=== PATIENT | male | born 1985 | race Caucasian/White ===

== ENCOUNTER 2021-06-04 09:47 | Outpatient (CLI) | payer BC, SELFPAY ==
[2021-06-04 10:48] LABS: Basophils Absolute Auto 0.1 K/mm3 (0.0-0.1); Basophils Percent Auto 1.1 % (0.2-1.2); Eosinophils Absolute Auto 0.3 K/mm3 (0-0.3); Hematocrit 48.9 % (42.0-52.0); Immature Granulocyte Absolute 0.02 K/mm3 (0.00-0.031); Immature Granulocyte Percent A 0.4 % (0-0.5); Lymphocytes Absolute Auto 1.47 K/mm3 (0.9-3.2); Lymphocytes Percent Auto 27.3 % (18.3-44.2); Mean Corpuscular HGB Conc 32.7 g/dl (32-36); Mean Corpuscular Hemoglobin 29.9 pg (26-34); Mean Corpuscular Volume 91.4 fl (80-100); Mean Platelet Volume 9.8 fl (7.4-10.4); Monocytes Absolute Auto 0.5 K/mm3 (0.1-0.6); Monocytes Percent Auto 8.7 % (2.6-8.5); Neutrophils Absolute Auto 3.1 K/mm3 (1.3-6.7); Neutrophils Percent Auto 57.5 % (45.5-73.1); Platelet Count Result 248 k/mm3 (150-375); Red Blood Count 5.35 M/mm3 (4.6-6.20); White Blood Count 5.4 K/mm3 (4.5-10.0)
[2021-06-04 11:09] LABS: Alanine Aminotransferase 23 U/L (4-50); Albumin Level 4.4 g/dL (3.5-5.1); Alkaline Phosphatase 58 U/L (38-126); Anion Gap 7 mmol/L (8-16); Aspartate Amino Transferase 30 U/L (17-59); Bilirubin,Total 0.7 mg/dL (0.2-1.3); Blood Urea Nitrogen 14 mg/dL (9-20); Calcium 9.1 mg/dL (8.4-10.2); Carbon Dioxide 26 mmol/L (22-30); Chloride 105 mmol/L (98-107); Cholesterol 172 mg/dL (0-200); Estimated Glomerular Filt Rate > 60; Glucose 103 mg/dL (65-110); HDL Direct 51 mg/dL; Sodium 138 mmol/L (137-145); Triglycerides 64 mg/dL (<150)
[2021-06-04 11:20] LABS: LDL Cholesterol Direct 88 mg/dL
[2021-06-04 11:23] LABS: Hemoglobin A1C 5.3 % (<5.7)
[2021-06-04 11:54] LABS: Free T4 Free Thyroxine 1.18 ng/mL (0.78-2.19); Vitamin D 25 Hydroxy 46.4 ng/mL
== END 2021-06-04 09:48 | disposition home or self-care (01) ==
LOC: ANHLAB 09:51
PROVIDERS: PCP Internal Medicine; Visit Provider Internal Medicine
DX: Z83.3 Family history of diabetes mellitus (principal); Z13.0 Encounter for screening for diseases of the blood and blood-forming organs and certain disorders involving the immune mechanism; Z13.220 Encounter for screening for lipoid disorders; Z13.1 Encounter for screening for diabetes mellitus; Z00.00 Encounter for general adult medical examination without abnormal findings
CPT/HCPCS: 36415; 80053; 80061; 82306; 83036; 84439; 84443; 85025

== ENCOUNTER 2022-08-12 08:30 | Outpatient (CLI) | payer OTHER, SELFPAY ==
--- NOTE | ~2022-08-12 | US_ITS ---
EXAMINATION: US soft tissue head and neck DATE: 08/12/2022 09:12 INDICATION: Dysphagia, unspecified. TECHNIQUE: Multiple ultrasound images of the thyroid were obtained. COMPARISON: None. FINDINGS: The right thyroid lobe measures 5.2 x 1.4 x 2.0 cm. The left thyroid lobe measures 5.4 x 1.6 x 1.4 c m. In the right thyroid lobe, there is a 4 mm nodule. IMPRESSION: 1. Small thyroid nodule, likely not clinically significant. No follow-up is needed. Reviewed, dictated and finalized at location A. LABORER IMPRESSION: 1. Small thyroid nodule, likely not clinically significant. No follow-up is nee ded.
--- NOTE | ~2022-08-12 | XR_ITS ---
EXAMINATION: XR barium swallow DATE: 08/12/2022 09:24 INDICATION: Dysphagia, unspecified. TECHNIQUE: The patient drank thick barium, gas-producing crystals, and thin barium. Fluoroscopy of th e hypopharynx and esophagus was performed. Fluoroscopy exposure time was 0.3 minutes. The total numbe r of images was 196. The dose-area product was 1.134 Gy-cm^2. COMPARISON: None. FINDINGS: There is no mass or stricture of the esophagus. Esophageal motility is normal. There is no hiatal hernia. There was no gastroesophageal reflux with provocative maneuvers. IMPRESSION: 1. Normal esophagram. Reviewed, dictated and finalized at location A. URER OF [place]UG[place] IMPRESSION: 1. Normal esophagram.
== END 2022-08-12 08:31 | disposition home or self-care (01) ==
PROVIDERS: PCP Internal Medicine; Visit Provider Internal Medicine
DX: R13.10 Dysphagia, unspecified (principal); E04.1 Nontoxic single thyroid nodule
CPT/HCPCS: 74220; 76536

== ENCOUNTER 2023-06-07 16:21 | Outpatient (CLI) | payer OTHER, SELFPAY ==
[2023-06-07 17:54] LABS: Basophils Absolute Auto 0.1 K/mm3 (0.0-0.1); Basophils Percent Auto 0.9 % (0.2-1.2); Eosinophils Absolute Auto 0.3 K/mm3 (0-0.3); Eosinophils Percent Auto 4.4 % (0-4.4); Hematocrit 46.8 % (42.0-52.0); Hemoglobin 15.7 g/dL (14.0-18.0); Immature Granulocyte Absolute 0.03 K/mm3 (0.00-0.031); Immature Granulocyte Percent A 0.4 % (0-0.5); Lymphocytes Absolute Auto 2.21 K/mm3 (0.9-3.2); Lymphocytes Percent Auto 28.3 % (18.3-44.2); Mean Corpuscular HGB Conc 33.5 g/dl (32-36); Mean Corpuscular Hemoglobin 30.1 pg (26-34); Mean Corpuscular Volume 89.8 fl (80-100); Mean Platelet Volume 9.6 fl (7.4-10.4); Monocytes Absolute Auto 0.6 K/mm3 (0.1-0.6); Monocytes Percent Auto 8.2 % (2.6-8.5); Neutrophils Absolute Auto 4.5 K/mm3 (1.3-6.7); Neutrophils Percent Auto 57.8 % (45.5-73.1); Platelet Count Result 274 k/mm3 (150-375); Red Blood Count 5.21 M/mm3 (4.6-6.20); Red Cell Distribution Width 12.5 % (11.5-14.5); White Blood Count 7.8 K/mm3 (4.5-10.0)
[2023-06-07 18:04] LABS: Alanine Aminotransferase 32 U/L (6-50); Albumin Level 4.6 g/dL (3.5-5.1); Alkaline Phosphatase 61 U/L (38-126); Anion Gap 7 mmol/L (8-16); Aspartate Amino Transferase 32 U/L (17-59); Bilirubin,Total 0.5 mg/dL (0.2-1.3); Blood Urea Nitrogen 19 mg/dL (9-20); Carbon Dioxide 28 mmol/L (22-30); Chloride 103 mmol/L (98-107); Cholesterol 192 mg/dL (0-200); Estimated Glomerular Filt Rate > 60; Glucose 88 mg/dL (65-110); HDL Direct 51 mg/dL; Potassium 3.8 mmol/L (3.4-5.0); Sodium 138 mmol/L (137-145); Triglycerides 50 mg/dL (<150)
[2023-06-07 18:14] LABS: Hemoglobin A1C 5.3 % (<5.7)
[2023-06-07 18:15] LABS: LDL Cholesterol Direct 109 mg/dL
[2023-06-07 18:27] LABS: Appearance Urine Clear (Clear); Bilirubin Urine Negative (Negative); Blood Urine Negative (Negative); Color Urine Yellow (Yellow); Glucose Urine UA Negative (Negative); Ketones Urine 1+ mg/dL (Negative); Leukocyte Esterase Ur Negative LEU/UL (NEGATIVE); Nitrate Urine Negative (Negative); Protein Urine Negative (Negative); Specific Grav Ur 1.029 (1.001-1.035); Urobilinogen Urine 0.2 mg/dL (<2.0)
[2023-06-07 18:35] LABS: Add Urine Microscopic? NO
[2023-06-07 18:58] LABS: Free T4 Free Thyroxine 1.31 ng/mL (0.78-2.19)
[2023-06-07 19:40] LABS: Vitamin D 25 Hydroxy 56.8 ng/mL
== END 2023-06-07 16:22 | disposition home or self-care (01) ==
LOC: ANHLAB 16:22
PROVIDERS: PCP Internal Medicine; Visit Provider Internal Medicine
DX: Z00.00 Encounter for general adult medical examination without abnormal findings (principal)
CPT/HCPCS: 36415; 80053; 80061; 81003; 82306; 83036; 84439; 84443; 85025

== ENCOUNTER 2024-07-19 11:16 | Outpatient (CLI) | payer BC, SELFPAY ==
[2024-07-19 11:34] LABS: Basophils Absolute Auto 0.1 K/mm3 (0.0-0.1); Basophils Percent Auto 1.1 % (0.2-1.2); Eosinophils Absolute Auto 0.4 K/mm3 (0-0.3); Hematocrit 47.6 % (42.0-52.0); Hemoglobin 16.3 g/dL (14.0-18.0); Immature Granulocyte Absolute 0.02 K/mm3 (0.00-0.031); Immature Granulocyte Percent A 0.3 % (0-0.5); Lymphocytes Absolute Auto 1.68 K/mm3 (0.9-3.2); Lymphocytes Percent Auto 26.7 % (18.3-44.2); Mean Corpuscular HGB Conc 34.2 g/dl (32-36); Mean Corpuscular Hemoglobin 30.5 pg (26-34); Mean Corpuscular Volume 89.1 fl (80-100); Mean Platelet Volume 9.9 fl (7.4-10.4); Monocytes Absolute Auto 0.6 K/mm3 (0.1-0.6); Monocytes Percent Auto 9.2 % (2.6-8.5); Neutrophils Absolute Auto 3.6 K/mm3 (1.3-6.7); Neutrophils Percent Auto 56.7 % (45.5-73.1); Platelet Count Result 270 k/mm3 (150-375); Red Blood Count 5.34 M/mm3 (4.6-6.20); Red Cell Distribution Width 12.8 % (11.5-14.5); White Blood Count 6.3 K/mm3 (4.5-10.0)
[2024-07-19 11:43] LABS: Hemoglobin A1C 5.5 % (<5.7)
[2024-07-19 11:44] LABS: Alanine Aminotransferase 54 U/L (6-50); Albumin Level 4.6 g/dL (3.5-5.1); Alkaline Phosphatase 60 U/L (38-126); Anion Gap 9 mmol/L (4-12); Aspartate Amino Transferase 37 U/L (17-59); Bilirubin,Total 0.7 mg/dL (0.2-1.3); Blood Urea Nitrogen 20 mg/dL (9-20); Calcium 9.1 mg/dL (8.4-10.2); Carbon Dioxide 31 mmol/L (22-30); Chloride 101 mmol/L (98-107); Cholesterol 190 mg/dL (0-200); Estimated Glomerular Filt Rate > 60; Glucose 96 mg/dL (65-110); HDL Direct 44 mg/dL; Potassium 3.9 mmol/L (3.4-5.0); Sodium 141 mmol/L (137-145); Triglycerides 155 mg/dL (<150)
[2024-07-19 11:55] LABS: LDL Cholesterol Direct 104 mg/dL
[2024-07-19 12:32] LABS: Vitamin D 25 Hydroxy 35.7 ng/mL
== END 2024-07-19 11:17 | disposition home or self-care (01) ==
PROVIDERS: PCP Internal Medicine; Visit Provider Internal Medicine
DX: Z13.220 Encounter for screening for lipoid disorders (principal); Z13.1 Encounter for screening for diabetes mellitus; E55.9 Vitamin D deficiency, unspecified; Z79.899 Other long term (current) drug therapy
CPT/HCPCS: 36415; 80053; 80061; 82306; 83036; 85025

== ENCOUNTER 2024-09-10 07:43 | Outpatient (CLI) | payer BC, SELFPAY ==
--- NOTE | ~2024-09-10 | MR_ITS ---
EXAMINATION: MR ankle RT wo con DATE: 09/10/2024 08:36 INDICATION: Plantar fasciitis TECHNIQUE: Magnetic resonance imaging (MRI) of the right ankle was performed without intravenous cont rast. Sequences included sagittal, coronal, and axial proton-density weighted fast spin echo without and with fat saturation. COMPARISON: None. FINDINGS: Medial ankle ligaments: Deep and superficial deltoid ligaments as well as the spring ligament are normal. Lateral ankle ligaments: The anterior and posterior inferior tibiofibular ligaments are normal. The anterior talofibular, calc aneofibular and posterior talofibular ligaments are normal. Tendons: Small enthesophyte and tiny enthesopathic ossicle at the calcaneal insertion of the otherwise normal Achilles tendon. The peroneus longus and brevis tendons are normal. The tibialis anterior and extenso r hallucis longus and extensor digitorum longus tendons are normal. The tibialis posterior, flexor di gitorum longus and flexor hallucis longus tendons are normal. Plantar fascia: There is mild enthesopathy at the proximal plantar aponeurosis. There is a partial-thickness intrasub stance tear at the calcaneal origin of the central component of the plantar aponeurosis. The tear rosendo sures partially 5 mm medial to lateral with similar approximate 5 mm distal retraction. The tear appe ars to involve <20% of the cross-sectional area of the aponeurosis. Bones/other: Bone alignment is normal. Thin low signal intensity likely sclerotic rim to a 5 mm T2 hyperintense li aryan intraosseous ganglion cyst in the calcaneus underlying the angle of Gissane. There is also a low signal intensity bone island at the talar dome. Marrow signal is otherwise unremarkable. No fracture or other pathologic marrow replacing process. Joint spaces are relatively preserved throughout the a nkle, mid and hindfoot. Fluid: No joint effusions or other abnormal fluid collections. IMPRESSION: 1. Mild plantar enthesopathy with a small partial-thickness intrasubstance tear at the calcaneal orig in of the central component of the plantar aponeurosis. Reviewed, dictated and finalized at location A. OSOFT DYNAMICS DEVELOPER IMPRESSION: 1. Mild plantar enthesopathy with a small partial-thickness intrasubstance tear at the calcaneal origin of the central component of the plantar aponeurosis.
--- NOTE | ~2024-09-10 | MR_ITS ---
EXAMINATION: MR ankle LT wo con DATE: 09/10/2024 08:49 INDICATION: Plantar fasciitis TECHNIQUE: Magnetic resonance imaging (MRI) of the left ankle was performed without intravenous contr ast. Sequences included sagittal, coronal, and axial proton-density weighted fast spin echo without a nd with fat saturation. COMPARISON: None. FINDINGS: Medial ankle ligaments: Deep and superficial deltoid ligaments as well as the spring ligament are normal. Lateral ankle ligaments: The anterior and posterior inferior tibiofibular ligaments are normal. The anterior talofibular, calc aneofibular and posterior talofibular ligaments are normal. Tendons: Small enthesophyte at the calcaneal insertion of the otherwise normal Achilles tendon. The peroneus l ongus and brevis tendons are normal. The tibialis anterior and extensor hallucis longus and extensor digitorum longus tendons are normal. The tibialis posterior, flexor digitorum longus and flexor hallu cis longus tendons are normal. Plantar fascia: Small plantar calcaneal spur at the origin of the normal-appearing plantar aponeurosis with no associ ated marrow or surrounding soft tissue edema to suggest acute plantar fasciitis. Bones/other: Bone alignment is normal. Small low signal intensity bone island at the posterior tuberosity of the c alcaneus. There is a 6 mm lesion at the base of the medial malleolus which demonstrates lower PD sign al in the surrounding fat but mild increased signal to the surrounding marrow on the fat-saturated im ages. There is a tract extending from the lesion to a tiny defect in the overlying articular cortex s uggesting involuting degenerative cystic change. Similar lesions are seen in the calcaneus underlying the angle of Gissane. Fluid: No joint effusions or other abnormal fluid collections. IMPRESSION: 1. Chronic mild plantar enthesopathy with small plantar calcaneal spur at the origin of the otherwise normal appearing plantar aponeurosis with no associated edema to suggest acute plantar fasciitis. Reviewed, dictated and finalized at location A. ION MAT MAKER IMPRESSION: 1. Chronic mild plantar enthesopathy with small plantar calcaneal spur at the o rigin of the otherwise normal appearing plantar aponeurosis with no associated edema to suggest acute plantar fasciitis.
== END 2024-09-10 07:44 | disposition home or self-care (01) ==
LOC: MICIMG 07:43
PROVIDERS: PCP Internal Medicine; Visit Provider Podiatrist Foot & Ankle Surgery
DX: M72.2 Plantar fascial fibromatosis (principal)
CPT/HCPCS: 73721

== ENCOUNTER 2024-10-04 00:38 | Day surgery (SDC) | payer BC, SELFPAY ==
[2024-09-18 08:47] VITALS: BMI 27.7
--- NOTE | 2024-09-30 13:34 | SUR.PREOP ---
Called pt to cancel his procedure on 10/02 due to provider availability. Pt rescheduled to 10/25 at 1500.Pt request an earlier date if possible. Told pt we would call if we had a cancellation.
[2024-10-04 07:52] VITALS: BP 131/93; PULSE 83; RESP 16; TEMP 36.1; O2SAT 99; BMI 27.1
[2024-10-04] MEDS: LACTATED RINGERS 1,000 ML 150 ML IV CONT (07:59)
--- NOTE | 2024-10-04 08:53 | WPDHPUPDATE1 ---
History and Physical Update Update Date/Time: 10/04/24 08:53 History and Physical has been reviewed, including an updated exam of the patient. There are NO changes in the patient's condition. Risks, benefits, and alternatives have been discussed and questions answered. Patient agrees to proceed with procedure.
--- NOTE | 2024-10-04 08:56 | P.PNAN_ITS ---
Anes - Initial Pre Proc Eval Procedure: Operation Date: 10/04/24 09:00 Proposed Procedures p Esophagogastroduodenoscopy - Jaiden Roper MD Date/Time: 10/04/24 08:56 Surgeon: Jaiden Roper MD Pre Op Diagnosis: foreign body sensation throat Patient Data Age: 38 Gender: M Height: 1.68 m Weight: 76.1 kg Last Vital Signs Temp 36.1 C L 10/04/24 07:52 Pulse 83 10/04/24 07:52 Resp 16 10/04/24 07:52 BP 131/93 H 10/04/24 07:52 Pulse Ox 99 10/04/24 07:52 O2 Del Method Room Air 10/04/24 07:52 Allergies Allergy/AdvReac Type Severity Reaction Status Date / Time suncscreen AdvReac Mild Rash Uncoded 10/04/24 07:51 Home Medications ?Medication ?Instructions ?Recorded ?Confirmed ?Type naproxen 250 mg tablet 250 mg PO BID PRN pain 07/25/23 09/18/24 History cholecalciferol (vitamin D3) 50 50 mcg PO DAILY 07/23/24 09/18/24 History mcg (2,000 unit) capsule pantoprazole 40 mg tablet,delayed 40 mg PO DAILY #30 tabs 09/06/24 09/18/24 Rx release Patient hx anesthesia problems: none Family hx anesthesia problems: none Results Review: All pre-operative results and documents have been reviewed as part of the pre- operative evaluation. [facility] Past Medical History Medical History Chronic back pain Vitamin D deficiency FHx: heart disease Hyperlipidemia BMI 28.0-28.9,adult Plantar fasciitis, bilateral On termite control service representative drug therapy Thyroid nodule GERD (gastroesophageal reflux disease) BMI 26.0-26.9,adult Encounter for preventive health examination BMI 25.0-25.9,adult Pain in right foot Pain in right ankle Screening for disorder of blood and blood-forming organs Family history of elevated blood lipids Screening for diabetes mellitus Family history of diabetes mellitus Annual physical exam Encounter to establish care with new doctor Family History Family History Father Hypertension Diabetes mellitus Mixed hyperlipidemia Obstructive sleep apnea Grandparent Colon cancer Social History Social History Smoking status: Never smoker Alcohol intake: never Substance use type: does not use Lack of Transportation: No Lack of Food: Never True Current Housing: I Have Housing Concerned About Future Housing: No Difficulty Paying Gas/Electric Bills: No Difficulty Paying for Meds: No Currently Unemployed: No Education: Decline to Answer Difficulty w/ Childcare or Family Care: No Living arrangements: with family Spiritual care concerns: No Anes - Eval Final PreProcedure Day of Procedure 10/04/24 08:56 Patient weight: normal Heart: regular rate and rhythm Lungs: normal air movement Airway: Mallampati scale class 1 Neurological: alert and oriented Last oral intake: >/= 8 hours ASA classification: II Emergent: no Anesthetic plan: proceed Anesthesia type and monitoring: general Results Review: All pre-operative results and documents have been reviewed as part of the pre-operative evaluation. Informed Consent: The patient's anesthetic plan and its attendant risks and benefits were discussed with the patient/family/POA. Questions were solicited and answers provided to the satisfaction of the patient/family/POA.
[2024-10-04 09:12] VITALS: BP 104/63; PULSE 69; RESP 18; O2SAT 99
[2024-10-04 09:22] VITALS: BP 116/75; PULSE 74; RESP 20; O2SAT 99
[2024-10-04 09:32] VITALS: BP 115/77; PULSE 83; RESP 20; O2SAT 100
== END 2024-10-04 09:40 | disposition home or self-care (01) ==
PROVIDERS: PCP Internal Medicine; Referring Provider Nurse Practitioner; Visit Provider Internal Medicine Gastroenterology
PROC: 0DJ08ZZ Inspection of Upper Intestinal Tract, Via Natural or Artificial Opening Endoscopic (ICD-10-PCS; CPT 43239; principal; 2024-10-04 09:00)
DX: K21.00 Gastro-esophageal reflux disease with esophagitis, without bleeding (principal); K31.89 Other diseases of stomach and duodenum; E55.9 Vitamin D deficiency, unspecified; G89.29 Other chronic pain; M54.9 Dorsalgia, unspecified; E78.5 Hyperlipidemia, unspecified; Z79.899 Other long term (current) drug therapy; Z79.1 Long term (current) use of non-steroidal anti-inflammatories (NSAID); Z98.890 Other specified postprocedural states; Z80.0 Family history of malignant neoplasm of digestive organs; Z82.49 Family history of ischemic heart disease and other diseases of the circulatory system
CPT/HCPCS: 43239; 88305; J2003; J2704; J7120

== ENCOUNTER 2025-02-07 08:48 | Outpatient (CLI) | payer BC, SELFPAY ==
--- OUTSIDE RECORDS SUMMARY | 2025-02-07 08:52 | XMS_ITS | Encounter Summary ---
Author Organization [facility] Address [address] [place] [address] Care Team Providers Care Legal Executive Assistant Name Role Phone Lauri Mckinley MD Primary Care Provider [phone] Encounter Details Date Type Department Care Team (Late st Contact Info) Description 10/05/2007 Outpatient Historical [facility] - [address] [place] [id number] Lauri Mckinley MD [id number] [facility] [address] [place], [place] [id number] Social History Tobacco Use Types Packs/Day Years Used Date Smoking Tobacco: Never Assessed Sex and Gender Information Value Date Recorded Sex Assigned at Not on file Legal Sex Male 4:33 AM IPHONE DEVELOPER Gender Identity Not on file Sexual Orientation Not on file documented as of this encounter Last Filed Vital Signs Vital Sign Reading Time Taken Comments Blood Pressure 116/82 10/05/2007 2:15 PM IPHONE DEVELOPER Pulse - - Temperature 36.7 C (98 F) 10/05/2007 2:15 PM IPHONE DEVELOPER Respiratory Rate - - Oxygen Saturation - - Inhaled Oxygen Concentration - - Weight 62.6 kg (138 lb) 10/05/2007 2:15 PM IPHONE DEVELOPER Height - - Body Mass Index - - documented in this encounter Plan of Treatment Not on file documented as of this encounter Visit Diagnoses Not on filedocumented in this encounter Care Teams Legal Executive Assistant Relationship Specialty Start Date End Date Lauri Mckinley MD PCP - General Internal Medicine 10/01/10 documented as of this encounter
--- OUTSIDE RECORDS SUMMARY | 2025-02-07 08:52 | XMS_ITS | Clinical Summary ---
Author Organization [facility] Address [address] [place] [address] Care Team Providers Care Telephone Worker Name Role Phone Ketan Vasquez MD Primary Care Provider [phone] Allergies No known active allergies Medications pantoprazole DR (PROTONIX) 40 mg EC tablet Take 1 tablet (40 mg total) by mouth daily Active meloxicam (MOBIC) 15 mg tabletIndication s:Bilateral foot pain Take 1 tablet (15 mg total) by mouth daily 30 tablet 01/07/2025 Active Active Problems No known active problems Encounters Date Type Department Care Team Description 01/07/2025 9:26 PM CDT - 01/07/2025 11:59 PM CDT Hospital Encounter [facility] [address] [place] [address] Discharge Disposition: Discharge to home or self care 01/07/2025 2:40 PM CDT - 01/07/2025 11:59 PM CDT Hospital Encounter [facility] [address] [place] [address] Discharge Disposition: Discharge to home or self care 01/07/2025 2:36 PM CDT - 01/07/2025 11:59 PM CDT Hospital Encounter [facility] [address] [place] [address] Discharge Disposition: Discharge to home or self care 01/07/2025 1:00 PM CDT Office Visit [facility] [address] [facility] [address]th [place] [address] [place] [address] Aleks Baird MD 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); Bilateral foot pain 01/07/2025 12:43 PM CDT - 01/07/2025 11:59 PM CDT Hospital Encounter [facility]) [address] [place] [address] Bilateral foot pain Discharge Disposition: Discharge to home or self care from Last 3 Months Medical History Medical History Date Comments Acid reflux Social History Tobacco Use Types Packs/Day Years Used Date Smoking Tobacco: Never Tobacco Cessation:Counseling Given: Not Answered Sex and Gender Information Value Date Recorded Sex Assigned at Not on file 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 Gender Identity Not on file Sexual Orientation Not on file Obstetrics History Plan of Treatment Health Maintenance Due Date Last Done Comments Depression Screening 1984 Hepatitis C Screening 1984 Varicella Vaccines (1 of 2 - 13+ 2-dose series) 1997 Hepatitis B Screening 2002 Regular Well Visit/Exam 18-64 2002 DTaP/Tdap/Td Vaccine (2 - Td or Tdap) 06/18/2029 06/18/2019 Covid-19 Vaccine Completed 09/10/2024, , 08/18/2021, Additional history exists Influenza Vaccine Completed 09/10/2024, , 07/31/2022 HPV Vaccines Aged Out No longer eligi ble based on patient's age to complete this topic Pneumococcal vaccine <65 Aged Out No longer eligible based on patient's age to complete this topic Procedures Procedure Name Priority Date/Time Associated Diagnosis Comments DAMIEN MR OUTSIDE REFERENCE Routine 01/07/2025 9:26 PM CDT XR TRANSFER OF OUTSIDE FILMS Routine 01/07/2025 2:40 PM CDT DAMIEN MR OUTSIDE REFERENCE Routine 01/07/2025 2:36 PM CDT XR ANKLE LEFT 2 VIEWS Schedule Routine, Read Routine (OP Routine) 01/07/2025 1:06 PM CDT Bilateral foot pain XR FOOT LEFT 3 OR MORE VIEWS Schedule Routine, Read Routine (OP Routine) 01/07/2025 1:06 PM CDT Bilateral foot pain XR ANKLE RIGHT 2 VIEWS Schedule Routine, Read Routine (OP Routine) 01/07/2025 1:06 PM CDT Bilateral foot pain XR FOOT RIGHT 3 OR MORE VIEWS Schedule Routine, Read Routine (OP Routine) 01/07/2025 1:06 PM CDT Bilateral foot pain from Last 3 Months Results * MSK MR Outside Reference (01/07/2025 9:26 PM CDT) Impressions RAD_[facility] - 01/07/2025 9:26 PM CDT These images are for Reference purposes only and have not been reviewed by [facility]. There will be no report generated by a [facility] Radiologist. Narrative RAD_PACS[facility] - 01/07/2025 9:26 PM CDT EXAMINATION: Images For Reference Purposes Only Aleks Baird MD IM MRI PROCEDURES Final Re sult Performing Organization Address [facility] de Phone Number [email or web address] * XR Outside Reference (01/07/2025 2:40 PM CDT) Impressions [facility] - 01/07/2025 2:40 PM CDT These images are for Reference purposes only and have not been reviewed by [facility]. There will be no report generated by a [facility] Radiologist. Narrative RAD_PACS[facility] - 01/07/2025 2:40 PM CDT EXAMINATION: Images For Reference Purposes Only Aleks Baird MD IM XR PROCEDURES Final Res ult Performing Organization Address [facility] Co de Phone Number [email or web address] * MSK MR Outside Reference (01/07/2025 2:36 PM CDT) Impressions [facility] - 01/07/2025 2:36 PM CDT These images are for Reference purposes only and have not been reviewed by [facility]. There will be no report generated by a [facility] Radiologist. Narrative [facility] - 01/07/2025 2:36 PM CDT EXAMINATION: Images For Reference Purposes Only us Aleks Baird MD IMG MRI PROCEDURES Final Re sult [facility] * XR Foot Right 3 or More Views (01/07/2025 1:06 PM CDT) Anatomical Region Laterality Modality Lower Extremities, Foot Right Computed Radiography 01/07/2025 2:18 PM CDT Impressions 01/07/2025 3:19 PM CDT 1. Mild osteoarthritis greatest at the tarsometatarsal joints and 1st metatarsophalangeal joints bilaterally. Dictated by: Reji Kohler M.D. The radiology attending physician has personally reviewed this study, and had reviewed and/or edited this written report and agrees with it. Electronically signed by: Dionisio Rizvi D.O. Narrative 01/07/2025 3:19 PM CDT EXAMINATION: XR FOOT RIGHT 3 OR MORE VIEWS, XR ANKLE RIGHT 2 VIEWS, XR FOOT LEFT 3 OR MORE VIEWS, XR ANKLE LEFT 2 VIEWS HISTORY: Foot and ankle pain. FINDINGS: 3 radiographs of the right foot, 3 radiographs of the left foot, 2 radiographs of the right ankle, and 2 radiographs of the left ankle are submitted without prior radiographs for comparison. Right foot: The alignment is normal. No acute fracture. Mild osteoarthritis greatest at the tarsometatarsal joints and 1st metatarsophalangeal joint. Plantar calcaneal spur. Achilles tendon enthesophyte. Left foot: The alignment is normal. No acute fracture. Mild osteoarthritis greatest at the tarsometatarsal joints and 1st metatarsophalangeal joint. Plantar calcaneal spur. Achilles tendon enthesophyte. Right ankle: The talar dome is intact. No abnormal widening of the ankle mortise or syndesmosis. No acute fracture. Left ankle: The talar dome is intact. No abnormal widening of the ankle mortise or syndesmosis. No acute fracture. Procedure Note Dionisio Rizvi, DO - 01/07/2025 EXAMINATION: XR FOOT RIGHT 3 OR MORE VIEWS, XR ANKLE RIGHT 2 VIEWS, XR FOOT LEFT 3 OR MORE VIEWS, XR ANKLE LEFT 2 VIEWS HISTORY: Foot and ankle pain. FINDINGS: 3 radiographs of the right foot, 3 radiographs of the left foot, 2 radiographs of the right ankle, and 2 radiographs of the left ankle are submitted without prior radiographs for comparison. Right foot: The alignment is normal. No acute fracture. Mild osteoarthritis greatest at the tarsometatarsal joints and 1st metatarsophalangeal joint. Plantar calcaneal spur. Achilles tendon enthesophyte. Left foot: The alignment is normal. No acute fracture. Mild osteoarthritis greatest at the tarsometatarsal joints and 1st metatarsophalangeal joint. Plantar calcaneal spur. Achilles tendon enthesophyte. Right ankle: The talar dome is intact. No abnormal widening of the ankle mortise or syndesmosis. No acute fracture. Left ankle: The talar dome is intact. No abnormal widening of the ankle mortise or syndesmosis. No acute fracture. IMPRESSION: 1. Mild osteoarthritis greatest at the tarsometatarsal joints and 1st metatarsophalangeal joints bilaterally. Dictated by: Reji Kohler M.D. The radiology attending physician has personally reviewed this study, and had reviewed and/or edited this written report and agrees with it. Electronically signed by: Dionisio Rizvi D.O. Aleks Baird MD IMG XR PROCEDURES Final Res ult * XR Foot Left 3 or More Views (01/07/2025 1:06 PM CDT) Anatomical Region Laterality Modality Lower Extremities, Foot Left Computed Radiography 01/07/2025 2:18 PM CDT Impressions 01/07/2025 3:19 PM CDT 1. Mild osteoarthritis greatest at the tarsometatarsal joints and 1st metatarsophalangeal joints bilaterally. Dictated by: Reji Kohler M.D. The radiology attending physician has personally reviewed this study, and had reviewed and/or edited this written report and agrees with it. Electronically signed by: Dionisio Rizvi D.O. Narrative 01/07/2025 3:19 PM CDT EXAMINATION: XR FOOT RIGHT 3 OR MORE VIEWS, XR ANKLE RIGHT 2 VIEWS, XR FOOT LEFT 3 OR MORE VIEWS, XR ANKLE LEFT 2 VIEWS HISTORY: Foot and ankle pain. FINDINGS: 3 radiographs of the right foot, 3 radiographs of the left foot, 2 radiographs of the right ankle, and 2 radiographs of the left ankle are submitted without prior radiographs for comparison. Right foot: The alignment is normal. No acute fracture. Mild osteoarthritis greatest at the tarsometatarsal joints and 1st metatarsophalangeal joint. Plantar calcaneal spur. Achilles tendon enthesophyte. Left foot: The alignment is normal. No acute fracture. Mild osteoarthritis greatest at the tarsometatarsal joints and 1st metatarsophalangeal joint. Plantar calcaneal spur. Achilles tendon enthesophyte. Right ankle: The talar dome is intact. No abnormal widening of the ankle mortise or syndesmosis. No acute fracture. Left ankle: The talar dome is intact. No abnormal widening of the ankle mortise or syndesmosis. No acute fracture. Procedure Note Dionisio Rizvi, - 01/07/2025 EXAMINATION: XR FOOT RIGHT 3 OR MORE VIEWS, XR ANKLE RIGHT 2 VIEWS, XR FOOT LEFT 3 OR MORE VIEWS, XR ANKLE LEFT 2 VIEWS HISTORY: Foot and ankle pain. FINDINGS: 3 radiographs of the right foot, 3 radiographs of the left foot, 2 radiographs of the right ankle, and 2 radiographs of the left ankle are submitted without prior radiographs for comparison. Right foot: The alignment is normal. No acute fracture. Mild osteoarthritis greatest at the tarsometatarsal joints and 1st metatarsophalangeal joint. Plantar calcaneal spur. Achilles tendon enthesophyte. Left foot: The alignment is normal. No acute fracture. Mild osteoarthritis greatest at the tarsometatarsal joints and 1st metatarsophalangeal joint. Plantar calcaneal spur. Achilles tendon enthesophyte. Right ankle: The talar dome is intact. No abnormal widening of the ankle mortise or syndesmosis. No acute fracture. Left ankle: The talar dome is intact. No abnormal widening of the ankle mortise or syndesmosis. No acute fracture. IMPRESSION: 1. Mild osteoarthritis greatest at the tarsometatarsal joints and 1st metatarsophalangeal joints bilaterally. Dictated by: Reji Kohler M.D. The radiology attending physician has personally reviewed this study, and had reviewed and/or edited this written report and agrees with it. Electronically signed by: Dionisio Rizvi D.O. us Aleks Baird MD IMG XR PROCEDURES Final Res ult * XR Ankle Right 2 Views (01/07/2025 1:06 PM CDT) Anatomical Region Laterality Modality Lower Extremities, Ankle Right Compute d Radiography 01/07/2025 2:18 PM CDT Impressions 01/07/2025 3:19 PM CDT 1. Mild osteoarthritis greatest at the tarsometatarsal joints and 1st metatarsophalangeal joints bilaterally. Dictated by: Reji Kohler M.D. The radiology attending physician has personally reviewed this study, and had reviewed and/or edited this written report and agrees with it. Electronically signed by: Dionisio Rizvi D.O. Narrative 01/07/2025 3:19 PM CDT EXAMINATION: XR FOOT RIGHT 3 OR MORE VIEWS, XR ANKLE RIGHT 2 VIEWS, XR FOOT LEFT 3 OR MORE VIEWS, XR ANKLE LEFT 2 VIEWS HISTORY: Foot and ankle pain. FINDINGS: 3 radiographs of the right foot, 3 radiographs of the left foot, 2 radiographs of the right ankle, and 2 radiographs of the left ankle are submitted without prior radiographs for comparison. Right foot: The alignment is normal. No acute fracture. Mild osteoarthritis greatest at the tarsometatarsal joints and 1st metatarsophalangeal joint. Plantar calcaneal spur. Achilles tendon enthesophyte. Left foot: The alignment is normal. No acute fracture. Mild osteoarthritis greatest at the tarsometatarsal joints and 1st metatarsophalangeal joint. Plantar calcaneal spur. Achilles tendon enthesophyte. Right ankle: The talar dome is intact. No abnormal widening of the ankle mortise or syndesmosis. No acute fracture. Left ankle: The talar dome is intact. No abnormal widening of the ankle mortise or syndesmosis. No acute fracture. Procedure Note Dionisio Rizvi, DO - 01/07/2025 EXAMINATION: XR FOOT RIGHT 3 OR MORE VIEWS, XR ANKLE RIGHT 2 VIEWS, XR FOOT LEFT 3 OR MORE VIEWS, XR ANKLE LEFT 2 VIEWS HISTORY: Foot and ankle pain. FINDINGS: 3 radiographs of the right foot, 3 radiographs of the left foot, 2 radiographs of the right ankle, and 2 radiographs of the left ankle are submitted without prior radiographs for comparison. Right foot: The alignment is normal. No acute fracture. Mild osteoarthritis greatest at the tarsometatarsal joints and 1st metatarsophalangeal joint. Plantar calcaneal spur. Achilles tendon enthesophyte. Left foot: The alignment is normal. No acute fracture. Mild osteoarthritis greatest at the tarsometatarsal joints and 1st metatarsophalangeal joint. Plantar calcaneal spur. Achilles tendon enthesophyte. Right ankle: The talar dome is intact. No abnormal widening of the ankle mortise or syndesmosis. No acute fracture. Left ankle: The talar dome is intact. No abnormal widening of the ankle mortise or syndesmosis. No acute fracture. IMPRESSION: 1. Mild osteoarthritis greatest at the tarsometatarsal joints and 1st metatarsophalangeal joints bilaterally. Dictated by: Reji Kohler M.D. The radiology attending physician has personally reviewed this study, and had reviewed and/or edited this written report and agrees with it. Electronically signed by: Dionisio Rizvi D.O. Aleks Baird MD [facility] XR PROCEDURES Final Res ult * XR Ankle Left 2 Views (01/07/2025 1:06 PM CDT) Anatomical Region Laterality Modality Lower Extremities, Ankle Left Compute d Radiography 01/07/2025 2:18 PM CDT Impressions 01/07/2025 3:19 PM CDT 1. Mild osteoarthritis greatest at the tarsometatarsal joints and 1st metatarsophalangeal joints bilaterally. Dictated by: Reji Kohler M.D. The radiology attending physician has personally reviewed this study, and had reviewed and/or edited this written report and agrees with it. Electronically signed by: Dionisio Rizvi D.O. Narrative 01/07/2025 3:19 PM CDT EXAMINATION: XR FOOT RIGHT 3 OR MORE VIEWS, XR ANKLE RIGHT 2 VIEWS, XR FOOT LEFT 3 OR MORE VIEWS, XR ANKLE LEFT 2 VIEWS HISTORY: Foot and ankle pain. FINDINGS: 3 radiographs of the right foot, 3 radiographs of the left foot, 2 radiographs of the right ankle, and 2 radiographs of the left ankle are submitted without prior radiographs for comparison. Right foot: The alignment is normal. No acute fracture. Mild osteoarthritis greatest at the tarsometatarsal joints and 1st metatarsophalangeal joint. Plantar calcaneal spur. Achilles tendon enthesophyte. Left foot: The alignment is normal. No acute fracture. Mild osteoarthritis greatest at the tarsometatarsal joints and 1st metatarsophalangeal joint. Plantar calcaneal spur. Achilles tendon enthesophyte. Right ankle: The talar dome is intact. No abnormal widening of the ankle mortise or syndesmosis. No acute fracture. Left ankle: The talar dome is intact. No abnormal widening of the ankle mortise or syndesmosis. No acute fracture. Procedure Note Dionisio Rizvi, - 01/07/2025 EXAMINATION: XR FOOT RIGHT 3 OR MORE VIEWS, XR ANKLE RIGHT 2 VIEWS, XR FOOT LEFT 3 OR MORE VIEWS, XR ANKLE LEFT 2 VIEWS HISTORY: Foot and ankle pain. FINDINGS: 3 radiographs of the right foot, 3 radiographs of the left foot, 2 radiographs of the right ankle, and 2 radiographs of the left ankle are submitted without prior radiographs for comparison. Right foot: The alignment is normal. No acute fracture. Mild osteoarthritis greatest at the tarsometatarsal joints and 1st metatarsophalangeal joint. Plantar calcaneal spur. Achilles tendon enthesophyte. Left foot: The alignment is normal. No acute fracture. Mild osteoarthritis greatest at the tarsometatarsal joints and 1st metatarsophalangeal joint. Plantar calcaneal spur. Achilles tendon enthesophyte. Right ankle: The talar dome is intact. No abnormal widening of the ankle mortise or syndesmosis. No acute fracture. Left ankle: The talar dome is intact. No abnormal widening of the ankle mortise or syndesmosis. No acute fracture. IMPRESSION: 1. Mild osteoarthritis greatest at the tarsometatarsal joints and 1st metatarsophalangeal joints bilaterally. Dictated by: Reji Kohler M.D. The radiology attending physician has personally reviewed this study, and had reviewed and/or edited this written report and agrees with it. Electronically signed by: Dionisio Rizvi D.O. Aleks Baird MD IMG XR PROCEDURES Final Res ult from Last 3 Months Insurance Minutizer DC Minutizer DC Care Teams Telephone Worker Relationship Specialty Start Date End Date Ketan Vasquez MD [address] [facility] [address] [facility] [place] [id number] PCP - General Internal Medicine 07/02/24
--- OUTSIDE RECORDS SUMMARY | 2025-02-07 08:52 | XMS_ITS | Clinical Summary ---
Author Organization [facility] Address [address] [place] [address] Care Team Providers Care Flower Grader Name Role Phone Lauri Mckinley MD Primary Care Provider [phone] Allergies Active Allergy Reactions Criticality Noted Date Comments No Known Allergies 10/05/2007 Medications FLUoxetine (PROZAC) 20 mg Oral tabletIndications :Routine general medical examination at a health care facility Take 1 Tab by mouth daily. 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 Gender Identity Not on file Sexual Orientation Not on file Last Filed Vital Signs Vital Sign Reading Time Taken Comments Blood Pressure 100/80 10/01/2010 1:37 PM DRILLER PORTABLE Pulse - - Temperature 36.9 C (98.5 F) 10/01/2010 1:37 PM DRILLER PORTABLE Respiratory Rate - - Oxygen Saturation - - Inhaled Oxygen Concentration - - Weight 73.7 kg (162 lb 6.4 oz) 10/01/2010 1:37 P M DRILLER PORTABLE Height - - Body Mass Index - - Plan of Treatment Health Maintenance Due Date Last Done Comments DTAP/TDAP/TD VACCINES (1 - Tdap) 2003 HEPATITIS B VACCINES (1 of 3 - 19+ 3-dose series) 2003 INFLUENZA VACCINE (#1) 2024 HPV VACCINES Aged Out No longer eligi ble based on patient's age to complete this topic Insurance Care Teams Flower Grader Relationship Specialty Start Date End Date Lauri Mckinley MD PCP - General Internal Medicine 10/01/10
--- OUTSIDE RECORDS SUMMARY | 2025-02-07 08:52 | XMS_ITS | Clinical Summary ---
Author Organization [facility] Address [address] [place] [address] Care Team Providers Care English Instructor Name Role Phone Amrando David MD Primary Care Provider [phone] Source Comments [facility],non-owned Affiliates and Associated Physician Practices is amultiple site organization consisting of ambulatory clinics and hospital sitesin [place], [place], [place] and [place]. This disclosure is being madepursuant to the Care Everywhere program and may not contain all information available regarding this patient. Last updated 18.[facility] Medications * Be aware that medications may not be up to date on this document. Alwaysverify current medications with the patient. No known medications Active Problems Problem Noted Date Diagnosed Date Achilles tendinitis of right lower extremity Assessment & Plan (06/18/2019 1:01 PM CDT): Reassured that symptoms should resolve over time. Provided with exercises for home. Lumbar arthropathy 06/18/2019 Assessment & Plan (06/18/2019 1:01 PM CDT): Continue with plan for PT. RTC PRN Immunizations Immunization Administration Dates Next Due TDAP (7yrs+) 06/18/2019 Family History Medical History Relation Name Comments Diabetes - Type 2 Father Relation Name Status Comments Father Alive Mother Alive Social History Tobacco Use Types Packs/Day Years Used Date Smoking Tobacco: Never Smokeless Tobacco: Never Alcohol Use Standard Drinks/Week Comments Not Currently 0 (1 standard drink = 0.6 oz pur e alcohol) AUDIT-C Answer Date Recorded Frequency of Alcohol Consumption Never 06/18/2019 Average Number of Drinks Not on file 019 Frequency of Binge Drinking Not on file 05/28 Sex and Gender Information Value Date Recorded Sex Assigned at Not on file Legal Sex Male 1:48 PM CDT Gender Identity Not on file Sexual Orientation Not on file Last Filed Vital Signs Vital Sign Reading Time Taken Comments Blood Pressure 130/80 06/18/2019 9:58 AM CDT Pulse 105 06/18/2019 9:58 AM CDT Temperature 36.4 C (97.5 F) 06/18/2019 9:58 AM CDT Respiratory Rate - - Oxygen Saturation 98% 06/18/2019 9:58 AM CDT Inhaled Oxygen Concentration - - Weight 68.4 kg (150 lb 12.8 oz) 06/18/2019 9:58 AM CDT Height 168.3 cm (5' 6.25 ) 06/18/2019 9:58 AM CD T Body Mass Index 24.16 06/18/2019 9:58 AM CDT Plan of Treatment Health Maintenance Due Date Last Done Comments LIPID TESTING 1984 HIV SCREENING 1999 HEPATITIS C SCREENING 11/09/2002 HEPATITIS B VACCINE (1 of 3 - 19+ 3-dose series) 2003 COVID-19 VACCINE ( - 2023-2 5 season) 2024 DEPRESSION SCREENING 09/26/2024 INFLUENZA VACCINE (Season Ended) 2025 DTAP/TDAP/TD VACCINES (2 - T d or Tdap) 06/18/2029 06/18/2019 ZOSTER VACCINE (1 of 2) 2034 HIB VACCINE Aged Out No longer eligi ble based on patient's age to complete this topic HPV VACCINE Aged Out No longer eligi ble based on patient's age to complete this topic MENINGOCOCCAL (Group B) VACC INE SHARED DECISION-MAKING Aged Out No longer eligibl e based on patient's age to complete this topic MENINGOCOCCAL GROUPS A/C/Y/W VACCINE Aged Out No longer eligible b ased on patient's age to complete this topic PNEUMOCOCCAL VACCINE Aged Out No long er eligible based on patient's age to complete this topic Insurance ANTHEM ANTHEM Care Teams English Instructor Relationship Specialty Start Date End Date Armando David MD [address] [facility] [address] [place] [address] PCP - General 05/22/19
--- OUTSIDE RECORDS SUMMARY | 2025-02-07 08:52 | XMS_ITS | Referral Summary ---
Author Organization [facility] Center Address [address] [place] [address] Care Team Providers Care Pastry Supervisor Name Role Phone Ketan Vasquez MD Primary Care Provider [phone] Encounters Date Type Department Care Team Description 01/07/2025 9:26 PM CDT - 01/07/2025 11:59 PM CDT Hospital Encounter [facility] ([facility]) [address] [place] [address] Discharge Disposition: Discharge to home or self care 01/07/2025 2:40 PM CDT - 01/07/2025 11:59 PM CDT Hospital Encounter [facility] ([facility]) [address] [place] [address] Discharge Disposition: Discharge to home or self care 01/07/2025 2:36 PM CDT - 01/07/2025 11:59 PM CDT Hospital Encounter [facility] ([facility]) [address] [place] [address]20 Discharge Disposition: Discharge to home or self care 01/07/2025 12:43 PM CDT - 01/07/2025 11:59 PM CDT Hospital Encounter [facility] ([facility]) [address] [place] [address]753 Bilateral foot pain Discharge Disposition: Discharge to home or self care 01/07/2025 1:00 PM CDT Office Visit [facility] Orthopaedic Surgery [address] [place] [address] for Advanced Medicine 6th [place] [address] [place] [address] Aleks Baird MD 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); Bilateral foot pain from Last 3 Months Allergies No known active allergies Medications pantoprazole DR (PROTONIX) 40 mg EC tablet Take 1 tablet (40 mg total) by mouth daily Active meloxicam (MOBIC) 15 mg tabletIndication s:Bilateral foot pain Take 1 tablet (15 mg total) by mouth daily 30 tablet 01/07/2025 Active Active Problems No known active problems Social History Tobacco Use Types Packs/Day Years Used Date Smoking Tobacco: Never Tobacco Cessation:Counseling Given: Not Answered Sex and Gender Information Value Date Recorded Sex Assigned at Not on file 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 There will be no report generated by a [facility] Radiologist. Narrative RAD_PACS_[facility] - 01/07/2025 9:26 PM CDT EXAMINATION: Images For Reference Purposes Only Aleks Baird MD IMG MRI PROCEDURES Final Re sult Performing Organization Address [facility] de Phone Number [email or web address] * XR Outside Reference (01/07/2025 2:40 PM CDT) Impressions RAD_PACS_BJ - 01/07/2025 2:40 PM CDT These images are for Reference purposes only and have not been reviewed by [facility]. There will be no report generated by a [facility] Radiologist. Narrative RAD_PACS_BJ - 01/07/2025 2:40 PM CDT EXAMINATION: Images For Reference Purposes Only Aleks Baird MD IMG XR PROCEDURES Final Res ult Performing Organization Address [facility] de Phone Number [email or web address] * MSK MR Outside Reference (01/07/2025 2:36 PM CDT) Impressions RAD_PACS_TAMMI - 01/07/2025 2:36 PM CDT These images are for Reference purposes only and have not been reviewed by [facility]. There will be no report generated by a [facility] Radiologist. Narrative RAD_PACS_BJ - 01/07/2025 2:36 PM CDT EXAMINATION: Images For Reference Purposes Only Aleks Baird MD IMG MRI PROCEDURES Final Re sult Performing Organization Address [facility] de Phone Number [email or web address] * XR Foot Right 3 or [...] Dionisio Rizvi D.O. us Aleks Baird MD IM XR PROCEDURES Final Res ult * XR [...] or syndesmosis. No acute fracture. Procedure Note Dionsiio Rizvi, - 01/07/2025 EXAMINATION: XR FOOT RIGHT [...] Res ult from Last 3 Months Insurance [facility] BLUE ACCESS [place] Care Teams Pastry Supervisor Relationship Specialty Start Date End Date Ketan Vasquez MD [address] [facility] [address] [facility] [address] [place], [place] [id number] PCP - General Internal Medicine 07/02/24
[2025-02-07 09:50] LABS: Alanine Aminotransferase 44 U/L (6-50); Albumin Level 4.6 g/dL (3.5-5.1); Alkaline Phosphatase 70 U/L (38-126); Anion Gap 10 mmol/L (4-12); Aspartate Amino Transferase 32 U/L (17-59); Bilirubin,Total 0.9 mg/dL (0.2-1.3); Blood Urea Nitrogen 20 mg/dL (9-20); Calcium 9.4 mg/dL (8.4-10.2); Carbon Dioxide 24 mmol/L (22-30); Chloride 105 mmol/L (98-107); Cholesterol 198 mg/dL (0-200); Estimated Glomerular Filt Rate > 60; Glucose 105 mg/dL (65-110); HDL Direct 39 mg/dL; Potassium 3.6 mmol/L (3.4-5.0); Sodium 139 mmol/L (137-145); Triglycerides 92 mg/dL (<150)
[2025-02-07 10:01] LABS: LDL Cholesterol Direct 113 mg/dL
[2025-02-07 11:08] LABS: Vitamin D 25 Hydroxy 72.3 ng/mL
== END 2025-02-07 08:49 | disposition home or self-care (01) ==
LOC: ANHLAB 08:50
PROVIDERS: PCP Internal Medicine; Visit Provider Internal Medicine
DX: E78.5 Hyperlipidemia, unspecified (principal); E55.9 Vitamin D deficiency, unspecified; Z79.899 Other long term (current) drug therapy
CPT/HCPCS: 36415; 80053; 80061; 82306

== ENCOUNTER 2025-02-07 10:20 | Emergency (ER) | payer BC, SELFPAY ==
[2025-02-07] VITALS (9 sets, daily range): BP systolic 112–144; BP diastolic 68–83; PULSE 86–107; RESP 16–18; TEMP 36.4; O2SAT 99–100
--- NOTE | ~2025-02-07 | XR_ITS ---
EXAMINATION: XR chest 2V 02/07/2025 11:20 INDICATION: Shortness of breath PROCEDURE: 2 view chest COMPARISON: No prior studies for comparison. FINDINGS: The lungs are clear. The cardiomediastinal silhouette is within normal limits. There are no pleural effusions. There is no pneumothorax suspected. IMPRESSION: 1: NO ACUTE CARDIOPULMONARY DISEASE. Reviewed, dictated and finalized at location A.
--- OUTSIDE RECORDS SUMMARY | 2025-02-07 10:27 | XMS_ITS | Clinical Summary ---
Author Organization [facility] Address [address] [place] [address] Care Team Providers Care Rehab Nurse Name Role Phone Ketan Vasquez MD Primary Care Provider [phone] Allergies No known active allergies Medications pantoprazole [...] - 01/07/2025 11:59 PM CDT Hospital Encounter [facility] ([facility]) [address] [place] [address] Discharge Disposition: Discharge to home or self care 01/07/2025 2:40 PM CDT - 01/07/2025 11:59 PM CDT Hospital Encounter [facility] ([facility]) [address] [place] [address] 31301 Discharge Disposition: Discharge to home or self care 01/07/2025 2:36 PM CDT - 01/07/2025 11:59 PM CDT Hospital Encounter 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 There will be no report generated by a [facility] Radiologist. Narrative RAD_PACS_BJ - 01/07/2025 9:26 PM CDT EXAMINATION: Images For Reference Purposes Only Aleks Baird MD IM MRI PROCEDURES Final Re sult Performing Organization Address [facility] de Phone Number [email or web address] * XR Outside Reference (01/07/2025 2:40 PM CDT) Impressions RAD_PACS_BJ - 01/07/2025 2:40 PM CDT These images are for Reference purposes only and have not been reviewed by [facility] Radiology. There will be no report generated by a [facility] Radiologist. Narrative RAD_PACS_BJ - 01/07/2025 2:40 PM CDT EXAMINATION: Images For Reference Purposes Only Aleks Baird MD IM XR PROCEDURES Final Res ult Performing Organization Address [facility] Co de Phone Number [email or web address] * MSK MR Outside Reference (01/07/2025 2:36 PM CDT) Impressions RAD_PACS[facility] - 01/07/2025 2:36 PM CDT These images are for Reference purposes only and have not been reviewed by [facility] Radiology. There will be no report generated by a [facility] Radiologist. Narrative RAD_PACS_[facility] - 01/07/2025 2:36 [...] by: Dionisio Rizvi D.O. Aleks Baird MD [facility] XR PROCEDURES Final Res ult * XR [...] Res ult from Last 3 Months Insurance [employer] [place] [employer] [place] Care Teams Rehab Nurse Relationship Specialty Start Date End Date Ketan Vasquez MD [address] [facility] [address] [place] [phone] PCP - General Internal Medicine 07/02/24
--- OUTSIDE RECORDS SUMMARY | 2025-02-07 10:27 | XMS_ITS | Clinical Summary ---
Author Organization [facility] Address [address] [facility] [place] [address] Care Team Providers Care Revenue Cycle Consultant Name Role Phone Armando David MD Primary Care Provider [phone] Source Comments [facility],non-owned Affiliates and Associated Physician Practices is amultiple site organization consisting of ambulatory clinics and hospital sitesin [place], [place], [place] and [place]. This disclosure is being madepursuant to the Care Everywhere program and may not contain all information available regarding this patient. Last updated 18.[facility] Medications * Be aware that medications may [...] this topic Insurance [employer]THE[employer] ANTHEM Care Teams Revenue Cycle Consultant Relationship Specialty Start Date End Date Armando David MD [address] [facility] [address] [place] [address] PCP - General 05/22/19
--- OUTSIDE RECORDS SUMMARY | 2025-02-07 10:27 | XMS_ITS | Clinical Summary ---
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 Gender Identity Not on file Sexual Orientation Not on file Last Filed Vital Signs Vital Sign Reading Time Taken Comments Blood Pressure 100/80 10/01/2010 1:37 PM WASTEWATER ENGINEER Pulse - - Temperature 36.9 C (98.5 F) 10/01/2010 1:37 PM WASTEWATER ENGINEER Respiratory Rate - - Oxygen Saturation - - Inhaled Oxygen Concentration - - Weight 73.7 kg (162 lb 6.4 oz) 10/01/2010 1:37 P M WASTEWATER ENGINEER Height - - Body Mass Index - - Plan of Treatment Health Maintenance Due Date Last Done Comments DTAP/TDAP/TD VACCINES (1 - Tdap) 2003 HEPATITIS B VACCINES (1 of 3 - 19+ 3-dose series) 2003 INFLUENZA VACCINE (#1) 2024 HPV VACCINES Aged Out No longer eligi ble based on patient's age to complete this topic Insurance Care Teams Wireless Sales Associate Relationship Specialty Start Date End Date Lauri Mckinley MD PCP - General Internal Medicine 10/01/10
--- OUTSIDE RECORDS SUMMARY | 2025-02-07 10:27 | XMS_ITS | Referral Summary ---
Author Organization [facility] Address [address] [place] [address] Care Team Providers Care Link Wire Fabric Machine Tender Name Role Phone Ketan Vasquez MD Primary Care Provider [phone] Encounters Date Type Department Care Team Description 01/07/2025 9:26 PM CDT - 01/07/2025 11:59 PM CDT Hospital Encounter [facility] ([facility]) [address] [place] [address] Discharge Disposition: Discharge to home or self care 01/07/2025 2:40 PM CDT - 01/07/2025 11:59 PM CDT Hospital Encounter [facility] ([facility]) [address] [place] [address] 24636 Discharge Disposition: Discharge to home or self care 01/07/2025 2:36 PM CDT - 01/07/2025 11:59 PM CDT Hospital Encounter [facility] ([facility]) [address] [place] [address]89 Discharge Disposition: Discharge to home or self care 01/07/2025 12:43 PM CDT - 01/07/2025 11:59 PM CDT Hospital Encounter [facility] ([facility]) [address] [place] [address] 04610 Bilateral foot pain Discharge Disposition: Discharge to home or self care 01/07/2025 1:00 PM CDT Office Visit [facility] Orthopaedic Surgery [address] [place] [address] for Advanced Medicine 6th [place] [address] [place] [address] Aleks Baird MD Plantar fascial fibromatosis of [...] on file 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 There will be no report generated by a [facility] Radiologist. Narrative RAD_PACS_[facility] - 01/07/2025 9:26 PM CDT EXAMINATION: Images For Reference Purposes Only Aleks Baird MD IMG MRI PROCEDURES Final Re sult Performing Organization Address [facility] de Phone Number [email or web address] * XR Outside Reference (01/07/2025 2:40 PM CDT) Impressions RAD_PACS_BJ - 01/07/2025 2:40 PM CDT These images are for Reference purposes only and have not been reviewed by [facility] Radiology. There will be no report generated by a [facility] Radiologist. Narrative RAD_PACS_BJ - 01/07/2025 2:40 PM CDT EXAMINATION: Images For Reference Purposes Only Aleks Baird MD IMG XR PROCEDURES Final Res ult Performing Organization Address [facility] de Phone Number [email or web address] * MSK MR Outside Reference (01/07/2025 2:36 PM CDT) Impressions RAD_PACS_TAMMI - 01/07/2025 2:36 PM CDT These images are for Reference purposes only and have not been reviewed by [facility]. There will be no report generated by a [facility] Radiologist. Narrative RAD_PACS_BJ - 01/07/2025 2:36 PM CDT EXAMINATION: Images For Reference Purposes Only Aleks Baird MD IMG MRI PROCEDURES Final Re sult Performing Organization Address [facility] de Phone Number [email or web address] * XR Foot [...] Res ult from Last 3 Months Insurance [facility] [place]UE ACC[place] Care Teams Link Wire Fabric Machine Tender Relationship Specialty Start Date End Date Ketan Vasquez MD [address] [facility] [address] [facility] [address] [place], [place] [phone] PCP - General Internal Medicine 07/02/24
--- OUTSIDE RECORDS SUMMARY | 2025-02-07 10:27 | XMS_ITS | Encounter Summary ---
Author Organization [facility] Address [address] [place] [address] Care Team Providers Care Digital Media Buyer Name Role Phone Lauri Mckinley MD Primary Care Provider [phone] Encounter Details Date Type Department Care Team (Late st Contact Info) Description 10/05/2007 Outpatient Historical [facility] Primary Care - [address] [place] [address] Lauri Mckinley MD [address] [facility] [address] [place], [place] [id number] Social History Tobacco Use Types Packs/Day Years Used Date Smoking Tobacco: Never Assessed Sex and Gender Information Value Date Recorded Sex Assigned at Not on file 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 Gender Identity Not on file Sexual Orientation Not on file documented as of this encounter Last Filed Vital Signs Vital Sign Reading Time Taken Comments Blood Pressure 116/82 10/05/2007 2:15 PM SENIOR UI UX DESIGNER Pulse - - Temperature 36.7 C (98 F) 10/05/2007 2:15 PM SENIOR UI UX DESIGNER Respiratory Rate - - Oxygen Saturation - - Inhaled Oxygen Concentration - - Weight 62.6 kg (138 lb) 10/05/2007 2:15 PM SENIOR UI UX DESIGNER Height - - Body Mass Index - - documented in this encounter Plan of Treatment Not on file documented as of this encounter Visit Diagnoses Not on filedocumented in this encounter Care Teams Digital Media Buyer Relationship Specialty Start Date End Date Lauri Mckinley MD PCP - General Internal Medicine 10/01/10 documented as of this encounter
--- NOTE | 2025-02-07 10:43 | ECG_ITS ---
Test Date: 2025-02-07 11:13:11 Measurements Intervals [place] Rate: 81 P: 63 [place]: 126 QRS: 68 QRSD: 85 T: 51 QT: 356 QTc: 415 Interpretive Statements SINUS RHYTHM WITH SINUS ARRHYTHMIA OTHERWISE NORMAL ECG No previous ECG available for comparison Electronically Signed On 02-08-2025 09:39:28 CDT by Armando Fleming M.D.
--- OUTSIDE RECORDS SUMMARY | 2025-02-07 11:32 | XMS_ITS | Clinical Summary ---
Author Organization [facility] Center Address [address] [place] [address] Care Team Providers Care Crisis Mental Health Therapist Name Role Phone Ketan Vasquez MD Primary Care Provider [phone] Allergies No known active allergies Medications pantoprazole [...] - 01/07/2025 11:59 PM CDT Hospital Encounter [facility] ([facility]) [address] [place] [address] Discharge Disposition: Discharge to home or self care 01/07/2025 2:40 PM CDT - 01/07/2025 11:59 PM CDT Hospital Encounter [facility] ([facility]) [address] [place] [address] Discharge Disposition: Discharge to home or self care 01/07/2025 2:36 PM CDT - 01/07/2025 11:59 PM CDT Hospital Encounter [facility] ([facility]) [address] [place] [address] Discharge Disposition: Discharge to home or self care 01/07/2025 1:00 PM CDT Office Visit [facility] Orthopaedic Surgery [address] [facility] Advanced Medicine 6th [place] [address] [place] [address] Aleks Baird MD 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); Bilateral foot pain 01/07/2025 12:43 PM CDT - 01/07/2025 11:59 PM CDT Hospital Encounter [facility] ([facility]) [address] [place] [address] Bilateral foot pain Discharge Disposition: Discharge to home or self care from Last 3 Months Medical History Medical History Date Comments Acid reflux Social History Tobacco Use Types Packs/Day Years Used Date Smoking Tobacco: Never Tobacco Cessation:Counseling Given: Not Answered Sex and Gender Information Value Date Recorded Sex Assigned at Not on file 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 There will be no report generated by a [facility] Radiologist. Narrative RAD_PACS_BJ - 01/07/2025 9:26 PM CDT EXAMINATION: Images For Reference Purposes Only Aleks Baird MD IM MRI PROCEDURES Final Re sult Performing Organization Address [facility] de Phone Number [email or web address] * XR Outside Reference (01/07/2025 2:40 PM CDT) Impressions RAD_PACS_BJ - 01/07/2025 2:40 PM CDT These images are for Reference purposes only and have not been reviewed by [facility]iology. There will be no report generated by a [facility] Radiologist. Narrative RAD_PACS_BJ - 01/07/2025 2:40 PM CDT EXAMINATION: Images For Reference Purposes Only Aleks Baird MD IM XR PROCEDURES Final Res ult Performing Organization Address [facility] Co de Phone Number [email or web address]_[facility] * MSK MR Outside Reference (01/07/2025 2:36 PM CDT) Impressions RAD_PACS_[facility] - 01/07/2025 2:36 PM CDT These images are for Reference purposes only and have not been reviewed by [facility]iology. There will be no report generated by a [facility] Radiologist. Narrative RAD_PACS_[facility] - 01/07/2025 2:36 PM [...] by: Dionisio Rizvi D.O. Aleks Baird MD [facility] XR PROCEDURES Final Res ult * XR [...] Res ult from Last 3 Months Insurance [employer] [place] [employer] [place] Care Teams Crisis Mental Health Therapist Relationship Specialty Start Date End Date Ketan Vasquez MD [address] [facility] [address] [place] [phone] PCP - General Internal Medicine 07/02/24
--- OUTSIDE RECORDS SUMMARY | 2025-02-07 11:32 | XMS_ITS | Referral Summary ---
Author Organization [facility] Address [address] [place] [address] Care Team Providers Care Quality Assurance Supervisor Chassis Name Role Phone Ketan Vasquez MD Primary Care Provider [phone] Encounters Date Type Department Care Team Description 01/07/2025 9:26 PM CDT - 01/07/2025 11:59 PM CDT Hospital Encounter [facility] ([facility]) [address] [place] [address] Discharge Disposition: Discharge to home or self care 01/07/2025 2:40 PM CDT - 01/07/2025 11:59 PM CDT Hospital Encounter [facility] ([facility]) [address] [place] [address] Discharge Disposition: Discharge to home or self care 01/07/2025 2:36 PM CDT - 01/07/2025 11:59 PM CDT Hospital Encounter [facility] ([facility]) [address] [place] [address] Discharge Disposition: Discharge to home or self care 01/07/2025 12:43 PM CDT - 01/07/2025 11:59 PM CDT Hospital Encounter [facility] ([facility]) [address] [place] [address]9529 Bilateral foot pain Discharge Disposition: Discharge to home or self care 01/07/2025 1:00 PM CDT Office Visit [facility] Orthopaedic Surgery [address] [place] [address] for Advanced Medicine 6th [place] [address] [place] [address] Aleks Baird MD Plantar fascial fibromatosis of [...] on file 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 There will be no report generated by a [facility] Radiologist. Narrative RAD_PACS_[facility] - 01/07/2025 9:26 PM CDT EXAMINATION: Images For Reference Purposes Only Aleks Baird MD IMG MRI PROCEDURES Final Re sult Performing Organization Address [facility] de Phone Number [email or web address] * XR Outside Reference (01/07/2025 2:40 PM CDT) Impressions RAD_PACS_BJ - 01/07/2025 2:40 PM CDT These images are for Reference purposes only and have not been reviewed by [facility]iology. There will be no report generated by a [facility] Radiologist. Narrative RAD_PACS_BJ - 01/07/2025 2:40 PM CDT EXAMINATION: Images For Reference Purposes Only Aleks Baird MD IMG XR PROCEDURES Final Res ult Performing Organization Address [facility] de Phone Number [email or web address] * MSK MR Outside Reference (01/07/2025 2:36 PM CDT) Impressions [email or web address]_TAMMI - 01/07/2025 2:36 PM CDT These images are for Reference purposes only and have not been reviewed by [facility]iology. There will be no report generated by a [facility] Radiologist. Narrative RAD_PACS_BJ - 01/07/2025 2:36 PM CDT EXAMINATION: Images For Reference Purposes Only Aleks Baird MD IMG MRI PROCEDURES Final Re sult Performing Organization Address [facility] de Phone [...] Res ult from Last 3 Months Insurance [employer] BLUE [place] Care Teams Quality Assurance Supervisor Chassis Relationship Specialty Start Date End Date Ketan Vasquez MD [address] [facility] [address] [facility] [address] [place], [place] [phone] PCP - General Internal Medicine 07/02/24
--- OUTSIDE RECORDS SUMMARY | 2025-02-07 11:32 | XMS_ITS | Clinical Summary ---
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 Gender Identity Not on file Sexual Orientation Not on file Last Filed Vital Signs Vital Sign Reading Time Taken Comments Blood Pressure 100/80 10/01/2010 1:37 PM WORKSHOP MANAGER Pulse - - Temperature 36.9 C (98.5 F) 10/01/2010 1:37 PM WORKSHOP MANAGER Respiratory Rate - - Oxygen Saturation - - Inhaled Oxygen Concentration - - Weight 73.7 kg (162 lb 6.4 oz) 10/01/2010 1:37 P M WORKSHOP MANAGER Height - - Body Mass Index - - Plan of Treatment Health Maintenance Due Date Last Done Comments DTAP/TDAP/TD VACCINES (1 - Tdap) 2003 HEPATITIS B VACCINES (1 of 3 - 19+ 3-dose series) 2003 INFLUENZA VACCINE (#1) 2024 HPV VACCINES Aged Out No longer eligi ble based on patient's age to complete this topic Insurance Care Teams Vice President Of Consulting Services Relationship Specialty Start Date End Date Lauri Mckinley MD PCP - General Internal Medicine 10/01/10
--- OUTSIDE RECORDS SUMMARY | 2025-02-07 11:32 | XMS_ITS | Encounter Summary ---
Author Organization [facility] Address [address] [place] [address] Care Team Providers Care Counseling Case Manager Name Role Phone Lauri Mckinley MD Primary Care Provider [phone] Encounter Details Date Type Department Care Team (Late st Contact Info) Description 10/05/2007 Outpatient Historical [facility] Primary Care - [address] [place] [phone] Lauri Mckinley MD [address] [facility] [address] [place], [place] [id number] Social History Tobacco Use Types Packs/Day Years Used Date Smoking Tobacco: Never Assessed Sex and Gender Information Value Date Recorded Sex Assigned at Not on file Legal Sex Male 4:33 AM HOSPITAL ADMINISTRATIVE ASSISTANT Gender Identity Not on file Sexual Orientation Not on file documented as of this encounter Last Filed Vital Signs Vital Sign Reading Time Taken Comments Blood Pressure 116/82 10/05/2007 2:15 PM HOSPITAL ADMINISTRATIVE ASSISTANT Pulse - - Temperature 36.7 C (98 F) 10/05/2007 2:15 PM HOSPITAL ADMINISTRATIVE ASSISTANT Respiratory Rate - - Oxygen Saturation - - Inhaled Oxygen Concentration - - Weight 62.6 kg (138 lb) 10/05/2007 2:15 PM HOSPITAL ADMINISTRATIVE ASSISTANT Height - - Body Mass Index - - documented in this encounter Plan of Treatment Not on file documented as of this encounter Visit Diagnoses Not on filedocumented in this encounter Care Teams Counseling Case Manager Relationship Specialty Start Date End Date Lauri Mckinley MD PCP - General Internal Medicine 10/01/10 documented as of this encounter
--- OUTSIDE RECORDS SUMMARY | 2025-02-07 11:32 | XMS_ITS | Clinical Summary ---
Author Organization [facility] [employer] Address [address] [facility] [place] [address] Care Team Providers Care Sales Service Technician Name Role Phone Armando David MD Primary Care Provider [phone] Source Comments [facility] [employer],non-owned Affiliates and Associated Physician Practices is amultiple site organization consisting of ambulatory clinics and hospital sitesin [place], [place], [place] and [place]. This disclosure is being madepursuant to the Care Everywhere program and may not contain all information available regarding this patient. Last updated 18.[facility] [employer] Medications * Be aware that medications may [...] this topic Insurance ANTHEM ANTHEM Care Teams Sales Service Technician Relationship Specialty Start Date End Date Armando David MD [address] [facility] [address] [place] [address] PCP - General 05/22/19
[2025-02-07] MEDS: IPRATROPIUM 0.5 MG/ALBUTEROL SULFATE 2.5 MG AMPUL.NEB 3 ML INHALATION (11:48)
[2025-02-07 13:15] LABS: Basophils Absolute Auto 0.1 K/mm3 (0.0-0.1); Eosinophils Absolute Auto 0.3 K/mm3 (0-0.3); Eosinophils Percent Auto 3.9 % (0-4.4); Hematocrit 44.1 % (42.0-52.0); Hemoglobin 15.2 g/dL (14.0-18.0); Immature Granulocyte Absolute 0.02 K/mm3 (0.00-0.031); Immature Granulocyte Percent A 0.3 % (0-0.5); Lymphocytes Absolute Auto 1.64 K/mm3 (0.9-3.2); Lymphocytes Percent Auto 22.3 % (18.3-44.2); Mean Corpuscular HGB Conc 34.5 g/dl (32-36); Mean Corpuscular Hemoglobin 29.3 pg (26-34); Mean Platelet Volume 10.1 fl (7.4-10.4); Monocytes Absolute Auto 0.7 K/mm3 (0.1-0.6); Monocytes Percent Auto 9.1 % (2.6-8.5); Neutrophils Absolute Auto 4.7 K/mm3 (1.3-6.7); Neutrophils Percent Auto 63.4 % (45.5-73.1); Platelet Count Result 260 k/mm3 (150-375); Red Blood Count 5.19 M/mm3 (4.6-6.20); Red Cell Distribution Width 12.3 % (11.5-14.5); White Blood Count 7.4 K/mm3 (4.5-10.0)
[2025-02-07 13:26] LABS: Anion Gap 8 mmol/L (4-12); Blood Urea Nitrogen 21 mg/dL (9-20); Carbon Dioxide 24 mmol/L (22-30); Chloride 107 mmol/L (98-107); Estimated CRCL calculation 90 ml/min; Estimated Glomerular Filt Rate > 60; Glucose 117 mg/dL (65-110); Potassium 3.4 mmol/L (3.4-5.0); Sodium 139 mmol/L (137-145)
[2025-02-07 13:38] LABS: Troponin I < 0.012 ng/mL (0.000-0.034)
[2025-02-07 13:47] LABS: D Dimer < 0.27 ug/mL (<0.48)
--- NOTE | 2025-02-07 15:22 | ED_ITS ---
HPI - SOB/Dyspnea General Chief Complaint: Shortness of Breath/Dyspnea Stated Complaint: sent by PCP for SOB Time Seen by Provider: 02/07/25 11:03 History of Present Illness HPI Narrative: Patient presents here shortness of breath, has been ongoing now for the last 1-2 weeks, he feels like he cannot catch a deep breath, have been intermittent but increasing frequency. Related Data Home Medications Medication Instructions Recorded Confirmed Last Taken Type naproxen 250 mg tablet 250 mg PO BID PRN pain 07/25/23 09/18/24 Unknown History cholecalciferol (vitamin D3) 50 50 mcg PO DAILY 07/23/24 09/18/24 Unknown History mcg (2,000 unit) capsule Allergies Allergy/AdvReac Type Severity Reaction Status Date / Time suncscreen AdvReac Mild Rash Uncoded 10/04/24 07:51 Review of Systems 2 Review of Systems: All systems reviewed & are unremarkable except as noted in HPI and below PMFSH Past Medical History Medical History Chronic back pain Vitamin D deficiency FHx: heart disease Hyperlipidemia BMI 28.0-28.9,adult Plantar fasciitis, bilateral On salvage determiner drug therapy Thyroid nodule GERD (gastroesophageal reflux disease) BMI 26.0-26.9,adult Encounter for preventive health examination BMI 25.0-25.9,adult Pain in right foot Pain in right ankle Screening for disorder of blood and blood-forming organs Family history of elevated blood lipids Screening for diabetes mellitus Family history of diabetes mellitus Annual physical exam Encounter to establish care with new doctor Family History Family History Father Hypertension Diabetes mellitus Mixed hyperlipidemia Obstructive sleep apnea Grandparent Colon cancer Social History Social History Smoking status: Never smoker Alcohol intake: never Substance use type: does not use Lack of Transportation: No Lack of Food: Never True Current Housing: I Have Housing Concerned About Future Housing: No Difficulty Paying Gas/Electric Bills: No Difficulty Paying for Meds: No Currently Unemployed: No Education: Decline to Answer Difficulty w/ Childcare or Family Care: No Living arrangements: with family Spiritual care concerns: No Exam 2 Narrative: EXAMINATION OF ORGAN SYSTEMS/BODY AREAS: Constitutional: Vital signs per nursing GENERAL: Appears anxious HEAD: Normal with no signs of head trauma. EYES: EOMI, conjunctiva normal ENT: Hearing grossly intact LUNGS: Nonlabored breathing. CTAB HEART: [Regular rate and rhythm] ABD: [Soft], [nontender to palpation] EXT: Normal range of motion SKIN: [No rashes or lesions.] NEURO: [Alert and oriented x 3. No gross focal sensory or strength deficits.] PSYCH: Anxious affect Course Vital Signs Vital signs: Vital Signs Temperature 97.6 F 02/07/25 10:22 Pulse Rate 96 02/07/25 10:22 Respiratory Rate 16 02/07/25 10:22 Blood Pressure 144/78 H 02/07/25 10:22 Pulse Oximetry 100 02/07/25 10:22 Oxygen Delivery Room Air 02/07/25 10:22 Temperature 97.6 F 02/07/25 10:22 Pulse Rate 87 02/07/25 14:01 Respiratory Rate 18 02/07/25 14:01 Blood Pressure 136/76 02/07/25 14:01 Pulse Oximetry 99 02/07/25 14:01 Oxygen Delivery Room Air 02/07/25 11:51 Fraction of Inspired Oxygen 21 02/07/25 11:51 MDM - SOB/Dyspnea MDM Narrative Medical decision making narrative: Patient presenting here with episodes of shortness of breath. On exam patient is anxious appearing, lungs are clear, does not appear toxic. I will obtain EKG and chest xray to rule out arrhythmia/ischemia, pneumothorax, or other cause of chest discomfort/shortness of breath. Chest x-ray on my independent interpretation does not show any acute abnormality, no pneumothorax or consolidation. EKG - 12-Lead: Performed at 1113. Interpreted by me. [Sinus rhythm]. Rate 81. [Normal] axis. VA-interval 126. QRS duration 85. QTc 415. [No ST segment elevation or depression]. [T-wave normal]. Impression: No EKG evidence of acute ischemia or dysrhythmia. I did trial breathing treatments which did not help. Patient and family are considered at that they would like blood work done, so this is obtained with D-dimer and troponins which are both negative. I have discussed these findings with the patient, I will give him follow-up information for pulmonology for further evaluation as needed. I do feel patient is stable for discharge home at this time with followup to their doctor, and return here if symptoms return or worsen. Agreeable to outpatient management. Lab Data 02/07/25 13:09 02/07/25 13:09 Labs: Lab Results 02/07/25 Range/Units 13:09 WBC 7.4 (4.5-10.0) K/mm3 RBC 5.19 (4.6-6.20) M/mm3 Hgb 15.2 (14.0-18.0) g/dL Hct 44.1 (42.0-52.0) % MCV 85.0 (80-100) fl MCH 29.3 (26-34) pg MCHC 34.5 (32-36) g/dl RDW 12.3 (11.5-14.5) % Plt Count 260 (150-375) k/mm3 MPV 10.1 (7.4-10.4) fl Immature Gran % (Auto) 0.3 (0-0.5) % Neut % (Auto) 63.4 (45.5-73.1) % Lymph % (Auto) 22.3 (18.3-44.2) % Kerr % (Auto) 9.1 H (2.6-8.5) % Eos % (Auto) 3.9 (0-4.4) % Baso % (Auto) 1.0 (0.2-1.2) % Lymph # (Auto) 1.64 (0.9-3.2) K/mm3 Kerr # (Auto) 0.7 H (0.1-0.6) K/mm3 Eos # (Auto) 0.3 (0-0.3) K/mm3 Baso # (Auto) 0.1 (0.0-0.1) K/mm3 Abs Immat Gran (auto) 0.02 (0.00-0.031) K/mm3 Absolute Neuts (auto) 4.7 (1.3-6.7) K/mm3 Absolute Nucleated RBC 0.000 (0.0-0.012) K/mm3 Nucleated RBC % 0.0 (0.0-0.2) % D-Dimer < 0.27 (<0.48) ug/mL Sodium 139 (137-145) mmol/L Potassium 3.4 (3.4-5.0) mmol/L Chloride 107 (98-107) mmol/L Carbon Dioxide 24 (22-30) mmol/L Anion Gap 8 (4-12) mmol/L BUN 21 H (9-20) mg/dL Creatinine 0.86 (0.7-1.3) mg/dL Estim Creat Clear Calc 90 ml/min Estimated GFR > 60 (59 - ) Glucose 117 H (65-110) mg/dL Calcium 9.0 (8.4-10.2) mg/dL Troponin I < 0.012 (0.000-0.034) ng/mL Discharge Plan Discharge Clinical Impression: Dyspnea Patient Disposition: Home Condition: Stable Instructions: Shortness of Breath (ED) Additional Instructions: Please follow up with your doctor and with the lung doctor; you can always return for any further issues. Patient Language: Telugu Prescriptions: No Action naproxen 250 mg tablet 250 mg PO BID PRN (Reason: pain) cholecalciferol (vitamin D3) 50 mcg (2,000 unit) capsule 50 mcg PO DAILY pantoprazole 40 mg tablet,delayed release (DR/EC) 40 mg PO DAILY Qty: 90 3RF Follow-up/Referrals: Ketan Vasquez MD [Primary Care Provider] -
== END 2025-02-07 14:17 | disposition home or self-care (01) ==
PROVIDERS: Emergency Provider Emergency Medicine; PCP Internal Medicine
DX: R06.00 Dyspnea, unspecified (principal); E78.5 Hyperlipidemia, unspecified
CPT/HCPCS: 36415; 71046; 80048; 84484; 85025; 85380; 93005; 94640; 99284

== ENCOUNTER 2025-02-14 07:52 | Outpatient (CLI) | payer BC, SELFPAY ==
--- NOTE | ~2025-02-14 | CT_ITS ---
CTA chest PE protocol Ordering provider: Ketan Vasquez MD History: 39 years Male with . R06.09 - Other forms of dyspnea . Comparison: None. Technique: CT angiogram chest was performed following timed intravenous injection of contrast. Thin s lice axial images and reformatted coronal images were obtained. Three dimensional reformatted images of the chest were also obtained using a RE2 workstation. . Automated exposure control and iterati ve reconstruction technique were employed. The dose-length product was 494.04 mGy-cm. 100 mL Omnipaqu e 350 was given IV. Findings: PULMONARY ARTERIES: No pulmonary embolus. VISUALIZED THORACIC INLET: Normal. MEDIASTINUM: Aorta/coronary arteries: The thoracic aorta is normal. Heart/other: The heart is not enlarged. Lymph nodes: No mediastinal or hilar adenopathy. LUNGS: No pulmonary nodules or masses. No infiltrates or effusions. No pneumothorax. VISUALIZED UPPER ABDOMEN: the visualized upper abdomen is normal. MUSCULOSKELETAL: Soft tissues: The superficial soft tissues are normal. Bones: Age appropriate degenerative changes of the spine. IMPRESSION: 1. No pulmonary embolism. 2. No acute cardiopulmonary pathology. Reviewed, dictated and finalized at location A.
--- OUTSIDE RECORDS SUMMARY | 2025-02-14 07:57 | XMS_ITS | Encounter Summary ---
Author Organization [facility] Address [address] [place] [address] Care Team Providers Care Public Relations Analyst Name Role Phone Lauri Mckinley MD Primary Care Provider [phone] Encounter Details Date Type Department Care Team (Late st Contact Info) Description 10/05/2007 Outpatient Historical [facility] Primary Care - [address] [place] [phone] Lauri Mckinley MD [address] [facility] [address] [place], [place] [id number] Social History Tobacco Use Types Packs/Day Years Used Date Smoking Tobacco: Never Assessed Sex and Gender Information Value Date Recorded Sex Assigned at Not on file 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 Gender Identity Not on file Sexual Orientation Not on file documented as of this encounter Last Filed Vital Signs Vital Sign Reading Time Taken Comments Blood Pressure 116/82 10/05/2007 2:15 PM PAPER COATER Pulse - - Temperature 36.7 C (98 F) 10/05/2007 2:15 PM PAPER COATER Respiratory Rate - - Oxygen Saturation - - Inhaled Oxygen Concentration - - Weight 62.6 kg (138 lb) 10/05/2007 2:15 PM PAPER COATER Height - - Body Mass Index - - documented in this encounter Plan of Treatment Not on file documented as of this encounter Visit Diagnoses Not on filedocumented in this encounter Care Teams Public Relations Analyst Relationship Specialty Start Date End Date Lauri Mckinley MD PCP - General Internal Medicine 10/01/10 documented as of this encounter
--- OUTSIDE RECORDS SUMMARY | 2025-02-14 07:57 | XMS_ITS | Referral Summary ---
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); Bilateral foot pain 01/07/2025 9:26 PM CDT - 01/07/2025 11:59 PM CDT Hospital Encounter [facility] [address] [place] [address] Discharge Disposition: Discharge to home or self care 01/07/2025 2:40 PM CDT - 01/07/2025 11:59 PM CDT Hospital Encounter [facility]) [address] [place] [address] Discharge Disposition: Discharge to home or self care 01/07/2025 2:36 PM CDT - 01/07/2025 11:59 PM CDT Hospital Encounter [facility]) [address] [place] [address] Discharge Disposition: Discharge to home or self care 01/07/2025 12:43 PM CDT - 01/07/2025 11:59 PM CDT Hospital Encounter [facility]) [address] [place] [address] Bilateral foot pain Discharge Disposition: Discharge to home or self care 01/07/2025 1:00 PM CDT Office Visit [facility] Orthopaedic Surgery [address] [facility] Advanced Medicine 6th [place] [address] [place] [address] Aleks Baird MD Plantar fascial fibromatosis of [...] on file 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 There will be no report generated by a [facility] Radiologist. Narrative [facility] - 01/07/2025 9:26 PM CDT EXAMINATION: Images For Reference Purposes Only Aleks Baird MD IMG MRI PROCEDURES Final Re sult Performing Organization Address [facility] de Phone Number [email or web address] * XR Outside Reference (01/07/2025 2:40 PM CDT) Impressions [facility] - 01/07/2025 2:40 PM CDT These images are for Reference purposes only and have not been reviewed by [facility]. There will be no report generated by a [facility] Radiologist. Narrative [facility] - 01/07/2025 2:40 PM CDT EXAMINATION: Images For Reference Purposes Only Aleks Baird MD IMG XR PROCEDURES Final Res ult Performing Organization Address [facility] de Phone Number [email or web address] * MSK MR Outside Reference (01/07/2025 2:36 PM CDT) Impressions [facility] - 01/07/2025 2:36 PM CDT These images are for Reference purposes only and have not been reviewed by [facility]. There will be no report generated by a [facility] Radiologist. Narrative [facility] - 01/07/2025 [...] Res ult from Last 3 Months Insurance [employer] [place] [employer] [place] Care Teams Syrup Machine Laborer Relationship Specialty Start Date End Date Ketan Vasquez MD [address] [facility] [address] [facility] [address] [place] [address] PCP - General Internal Medicine 07/02/24
--- OUTSIDE RECORDS SUMMARY | 2025-02-14 07:57 | XMS_ITS | Clinical Summary ---
Author Organization [facility] Address [address] [place] [address] Care Team Providers Care Euclid Operator Name Role Phone Ketan Vasquez MD Primary Care Provider [phone] Allergies No known active allergies Medications pantoprazole DR (PROTONIX) 40 mg EC tablet Take 1 tablet (40 mg total) by mouth daily Active meloxicam (MOBIC) 15 mg tabletIndication s:Bilateral foot pain Take 1 tablet (15 mg total) by mouth daily 30 tablet 01/07/2025 Active Active Problems No known active problems Encounters Date Type Department Care Team Description 02/11/2025 11:15 AM CDT Office Visit [facility] Orthopaedic Surgery [address] [facility] [address]th [place] [address] [place] [address] Aleks Baird MD 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); Bilateral foot pain 01/07/2025 9:26 PM CDT - 01/07/2025 11:59 PM CDT Hospital Encounter [facility]) [address] [place] [address] Discharge Disposition: Discharge to home or self care 01/07/2025 2:40 PM CDT - 01/07/2025 11:59 PM CDT Hospital Encounter [facility]) [address] [place] [address] Discharge Disposition: Discharge to home or self care 01/07/2025 2:36 PM CDT - 01/07/2025 11:59 PM CDT Hospital Encounter [facility] [address] [place] [address] Discharge Disposition: Discharge to home or self care 01/07/2025 1:00 PM CDT Office Visit [facility] Orthopaedic Surgery [address] [facility] 6th [place] [address] [place] [address] Aleks Baird MD 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); Bilateral foot pain 01/07/2025 12:43 PM CDT - 01/07/2025 11:59 PM CDT Hospital Encounter [facility] [address] [place] [address] Bilateral foot pain Discharge Disposition: Discharge to home or self care from Last 3 Months Medical History Medical History Date Comments Acid reflux Social History Tobacco Use Types Packs/Day Years Used Date Smoking Tobacco: Never Tobacco Cessation:Counseling Given: Not Answered Sex and Gender Information Value Date Recorded Sex Assigned at Not on file 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 There will be no report generated by a [facility] Radiologist. Narrative [facility] - 01/07/2025 9:26 PM CDT EXAMINATION: Images For Reference Purposes Only us Aleks Baird MD IMG MRI PROCEDURES Final Re sult [email or web address] * XR Outside Reference (01/07/2025 2:40 PM CDT) Impressions [facility] - 01/07/2025 2:40 PM CDT These images are for Reference purposes only and have not been reviewed by [facility]. There will be no report generated by a [facility] Radiologist. Narrative [facility] - 01/07/2025 2:40 PM CDT EXAMINATION: Images For Reference Purposes Only Aleks Baird MD IMG XR PROCEDURES Final Res ult Performing Organization Address [facility] de Phone Number [email or web address] * MSK MR Outside Reference (01/07/2025 2:36 PM CDT) Impressions [facility] - 01/07/2025 2:36 PM CDT These images are for Reference purposes only and have not been reviewed by [facility]. There will be no report generated by a [facility] Radiologist. Narrative [facility] - 01/07/2025 2:36 PM CDT EXAMINATION: Images For Reference Purposes Only Aleks Baird MD IMG MRI PROCEDURES Final Re sult Performing Organization Address [facility] de Phone Number [email or web address] * XR Foot [...] Dionisio Rizvi D.O. us Aleks Baird MD [employer] XR PROCEDURES Final Res ult * XR [...] Rizvi D.O. Aleks Baird MD [facility] XR PROCEDURES Final Res ult * XR [...] Res ult from Last 3 Months Insurance [employer] [place] [employer] [place] Care Teams Euclid Operator Relationship Specialty Start Date End Date Ketan Vasquez MD [address] [facility] [address] [facility] [address] [place] [address] PCP - General Internal Medicine 07/02/24
--- OUTSIDE RECORDS SUMMARY | 2025-02-14 07:57 | XMS_ITS | Clinical Summary ---
Author Organization [facility] Address [address] [place] [address] Care Team Providers Care Agile Business Analyst Name Role Phone Lauri Mckinley MD Primary Care Provider [phone] Allergies Active Allergy Reactions Criticality Noted Date [...] on file Legal Sex Male 4:33 AM DIRECTOR TEEN POST Gender Identity Not on file Sexual Orientation Not on file Last Filed Vital Signs Vital Sign Reading Time Taken Comments Blood Pressure 100/80 10/01/2010 1:37 PM DIRECTOR TEEN POST Pulse - - Temperature 36.9 C (98.5 F) 10/01/2010 1:37 PM DIRECTOR TEEN POST Respiratory Rate - - Oxygen Saturation - - Inhaled Oxygen Concentration - - Weight 73.7 kg (162 lb 6.4 oz) 10/01/2010 1:37 P M DIRECTOR TEEN POST Height - - Body Mass Index - - Plan of Treatment Health Maintenance Due Date Last Done Comments DTAP/TDAP/TD VACCINES (1 - Tdap) 2003 HEPATITIS B VACCINES (1 of 3 - 19+ 3-dose series) 2003 INFLUENZA VACCINE (#1) 2024 HPV VACCINES Aged Out No longer eligi ble based on patient's age to complete this topic Insurance Care Teams Agile Business Analyst Relationship Specialty Start Date End Date Lauri Mckinley MD PCP - General Internal Medicine 10/01/10
--- OUTSIDE RECORDS SUMMARY | 2025-02-14 07:57 | XMS_ITS | Clinical Summary ---
Author Organization [facility] Address [address] [facility] [place] [address] Care Team Providers Care Wire Straightening Machine Operator Name Role Phone Armando David MD Primary Care Provider Source Comments [facility],non-owned Affiliates and Associated Physician Practices is amultiple site organization consisting of ambulatory clinics and hospital sitesin [place], [place], [place] and [place]. This disclosure is being madepursuant to the Care Everywhere program and may not contain all information available regarding this patient. Last updated 18.[facility] Medications * Be aware that medications may [...] this topic Insurance ANTHEM ANTHEM Care Teams Wire Straightening Machine Operator Relationship Specialty Start Date End Date Armando David MD [address] [facility] [address] [place] [address] PCP - General 05/22/19
[2025-02-14 09:02] LABS: Basophils Absolute Auto 0.1 K/mm3 (0.0-0.1); Eosinophils Absolute Auto 0.4 K/mm3 (0-0.3); Eosinophils Percent Auto 6.8 % (0-4.4); Hematocrit 47.5 % (42.0-52.0); Hemoglobin 15.8 g/dL (14.0-18.0); Immature Granulocyte Absolute 0.02 K/mm3 (0.00-0.031); Immature Granulocyte Percent A 0.3 % (0-0.5); Lymphocytes Absolute Auto 1.44 K/mm3 (0.9-3.2); Lymphocytes Percent Auto 23.8 % (18.3-44.2); Mean Corpuscular HGB Conc 33.3 g/dl (32-36); Mean Corpuscular Hemoglobin 28.8 pg (26-34); Mean Corpuscular Volume 86.5 fl (80-100); Mean Platelet Volume 9.8 fl (7.4-10.4); Monocytes Absolute Auto 0.6 K/mm3 (0.1-0.6); Monocytes Percent Auto 9.1 % (2.6-8.5); Neutrophils Absolute Auto 3.6 K/mm3 (1.3-6.7); Platelet Count Result 280 k/mm3 (150-375); Red Blood Count 5.49 M/mm3 (4.6-6.20); Red Cell Distribution Width 12.4 % (11.5-14.5); White Blood Count 6.1 K/mm3 (4.5-10.0)
[2025-02-14 09:14] LABS: INR 1.1; Prothrombin Time 14.7 Seconds (11.1-14.7)
== END 2025-02-14 07:53 | disposition home or self-care (01) ==
PROVIDERS: PCP Internal Medicine; Visit Provider Internal Medicine
DX: R06.09 Other forms of dyspnea (principal)
CPT/HCPCS: 36415; 71275; 85025; 85610; Q9967

== ENCOUNTER 2025-02-20 09:29 | Outpatient (CLI) | payer BC, SELFPAY ==
--- OUTSIDE RECORDS SUMMARY | 2025-02-20 09:35 | XMS_ITS | Clinical Summary ---
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 Gender Identity Not on file Sexual Orientation Not on file Last Filed Vital Signs Vital Sign Reading Time Taken Comments Blood Pressure 100/80 10/01/2010 1:37 PM OVERHEAD GARAGE DOOR HANGER Pulse - - Temperature 36.9 C (98.5 F) 10/01/2010 1:37 PM OVERHEAD GARAGE DOOR HANGER Respiratory Rate - - Oxygen Saturation - - Inhaled Oxygen Concentration - - Weight 73.7 kg (162 lb 6.4 oz) 10/01/2010 1:37 P M OVERHEAD GARAGE DOOR HANGER Height - - Body Mass Index - - Plan of Treatment Health Maintenance Due Date Last Done Comments DTAP/TDAP/TD VACCINES (1 - Tdap) 2003 HEPATITIS B VACCINES (1 of 3 - 19+ 3-dose series) 2003 INFLUENZA VACCINE (#1) 2024 HPV VACCINES Aged Out No longer eligi ble based on patient's age to complete this topic Insurance Care Teams Towel Folder Relationship Specialty Start Date End Date Lauri Mckinley MD PCP - General Internal Medicine 10/01/10
--- OUTSIDE RECORDS SUMMARY | 2025-02-20 09:35 | XMS_ITS | Encounter Summary ---
Author Organization [facility] Address [address] [place] [address] Care Team Providers Care Special Education Curriculum Specialist Name Role Phone Lauri Mckinley MD Primary Care Provider [phone] Encounter Details Date Type Department Care Team (Late st Contact Info) Description 10/05/2007 Outpatient Historical [facility] Primary Care - [address] [place] [phone] Lauri Mckinley MD [address] [facility] [address] [place], [place] [id number] Social History Tobacco Use Types Packs/Day Years Used Date Smoking Tobacco: Never Assessed Sex and Gender Information Value Date Recorded Sex Assigned at Not on file 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 Gender Identity Not on file Sexual Orientation Not on file documented as of this encounter Last Filed Vital Signs Vital Sign Reading Time Taken Comments Blood Pressure 116/82 10/05/2007 2:15 PM CEMENT AND CONCRETE PLANT WORKER Pulse - - Temperature 36.7 C (98 F) 10/05/2007 2:15 PM CEMENT AND CONCRETE PLANT WORKER Respiratory Rate - - Oxygen Saturation - - Inhaled Oxygen Concentration - - Weight 62.6 kg (138 lb) 10/05/2007 2:15 PM CEMENT AND CONCRETE PLANT WORKER Height - - Body Mass Index - - documented in this encounter Plan of Treatment Not on file documented as of this encounter Visit Diagnoses Not on filedocumented in this encounter Care Teams Special Education Curriculum Specialist Relationship Specialty Start Date End Date Lauri Mckinley MD PCP - General Internal Medicine 10/01/10 documented as of this encounter
--- OUTSIDE RECORDS SUMMARY | 2025-02-20 09:35 | XMS_ITS | Clinical Summary ---
Author Organization [facility] Orthopedic [facility] Address [address] [place] [address] Care Team Providers Care Support Staff Name Role Phone Ketan Vasquez MD Primary Care Provider [phone] Allergies No known active allergies Medications pantoprazole DR (PROTONIX) 40 mg EC tablet Take 1 tablet (40 mg total) by mouth daily Active meloxicam (MOBIC) 15 mg tabletIndication s:Bilateral foot pain Take 1 tablet (15 mg total) by mouth daily 30 tablet 01/07/2025 Active Active Problems No known active problems Encounters Date Type Department Care Team Description 02/11/2025 11:15 AM CDT Office Visit [facility] Orthopaedic Surgery [address] [facility] 6th [place] [address] [place] [address] Aleks Baird MD 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); Bilateral foot pain 01/07/2025 9:26 PM CDT - 01/07/2025 11:59 PM CDT Hospital Encounter [facility] [address] [place] [address] Discharge Disposition: Discharge to home or self care 01/07/2025 2:40 PM CDT - 01/07/2025 11:59 PM CDT Hospital Encounter [facility]) [address] [place] [address] Discharge Disposition: Discharge to home or self care 01/07/2025 2:36 PM CDT - 01/07/2025 11:59 PM CDT Hospital Encounter [facility]) [address] [place] [address] Discharge Disposition: Discharge to home or self care 01/07/2025 1:00 PM CDT Office Visit [facility] Orthopaedic Surgery [address] [facility] 6th [place] [address] [place] [address] Aleks Baird MD 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); Bilateral foot pain 01/07/2025 12:43 PM CDT - 01/07/2025 11:59 PM CDT Hospital Encounter [facility]) [address] [place] [address] Bilateral foot pain Discharge Disposition: Discharge to home or self care from Last 3 Months Medical History Medical History Date Comments Acid reflux Social History Tobacco Use Types Packs/Day Years Used Date Smoking Tobacco: Never Tobacco Cessation:Counseling Given: Not Answered Sex and Gender Information Value Date Recorded Sex Assigned at Not on file 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 There will be no report generated by a [facility] Radiologist. Narrative RAD_PACS_[facility]J - 01/07/2025 9:26 PM CDT EXAMINATION: Images For Reference Purposes Only us Aleks Baird MD IMG MRI PROCEDURES Final Re sult [facility] * XR Outside Reference (01/07/2025 2:40 PM CDT) Impressions RAD_PACS[facility] - 01/07/2025 2:40 PM CDT These images are for Reference purposes only and have not been reviewed by [facility]. There will be no report generated by a [facility] Radiologist. Narrative RAD_PACS_[facility] - 01/07/2025 2:40 PM CDT EXAMINATION: Images For Reference Purposes Only Aleks Baird MD IMG XR PROCEDURES Final Res ult Performing Organization Address [facility] de Phone Number [email or web address] * MSK MR Outside Reference (01/07/2025 2:36 PM CDT) Impressions [facility] - 01/07/2025 2:36 PM CDT These images are for Reference purposes only and have not been reviewed by [facility]. There will be no report generated by a [facility] Radiologist. Narrative [facility] - 01/07/2025 2:36 PM CDT EXAMINATION: Images For Reference Purposes Only Aleks Baird MD IMG MRI PROCEDURES Final Re sult Performing Organization Address [facility] de Phone Number [email or web address] * XR Foot [...] by: Dionisio Rizvi D.O. Aleks Baird MD [facility] XR PROCEDURES Final Res ult * XR [...] Res ult from Last 3 Months Insurance [employer] [place] [employer] [place] Care Teams Support Staff Relationship Specialty Start Date End Date Ketan Vasquez MD [address] [facility] [address] [facility] [address] [place] [address] PCP - General Internal Medicine 07/02/24
--- OUTSIDE RECORDS SUMMARY | 2025-02-20 09:35 | XMS_ITS | Clinical Summary ---
Author Organization [facility] [employer] Address [address] [facility] [place] [address] Care Team Providers Care Senior Erp Consultant Name Role Phone Armando David MD Primary Care Provider [phone] Source Comments [facility] [employer],non-owned Affiliates and Associated Physician Practices is amultiple site organization consisting of ambulatory clinics and hospital sitesin [place], [place], [place] and [place]. This disclosure is being madepursuant to the Care Everywhere program and may not contain all information available regarding this patient. Last updated 18.[facility] [employer] Medications * Be aware that medications may [...] 9:58 AM CDT Height 168.3 cm (5' 6.25) 06/18/2019 9:58 AM CD T Body Mass [...] this topic Insurance ANTHEM ANTHEM Care Teams Senior Erp Consultant Relationship Specialty Start Date End Date Armando David MD [address] [facility] [address] [place] [address] PCP - General 05/22/19
--- OUTSIDE RECORDS SUMMARY | 2025-02-20 09:35 | XMS_ITS | Referral Summary ---
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); Bilateral foot pain 01/07/2025 9:26 PM CDT - 01/07/2025 11:59 PM CDT Hospital Encounter [facility]) [address] [place] [address] Discharge Disposition: Discharge to home or self care 01/07/2025 2:40 PM CDT - 01/07/2025 11:59 PM CDT Hospital Encounter [facility]) [address] [place] [address] Discharge Disposition: Discharge to home or self care 01/07/2025 2:36 PM CDT - 01/07/2025 11:59 PM CDT Hospital Encounter [facility]) [address] [place] [address] Discharge Disposition: Discharge to home or self care 01/07/2025 12:43 PM CDT - 01/07/2025 11:59 PM CDT Hospital Encounter [facility]) [address] [place] [address] Bilateral foot pain Discharge Disposition: Discharge to home or self care 01/07/2025 1:00 PM CDT Office Visit [facility] Orthopaedic Surgery [address] 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 There will be no report generated by a [facility] Radiologist. Narrative RAD_PACS[facility] - 01/07/2025 9:26 PM CDT EXAMINATION: Images For Reference Purposes Only Aleks Baird MD IMG MRI PROCEDURES Final Re sult Performing Organization Address [facility] de Phone Number [email or web address] * XR Outside Reference (01/07/2025 2:40 PM CDT) Impressions [facility] - 01/07/2025 2:40 PM CDT These images are for Reference purposes only and have not been reviewed by [facility]iology. There will be no report generated by a [facility] Radiologist. Narrative [facility] - 01/07/2025 2:40 PM CDT EXAMINATION: Images For Reference Purposes Only Aleks Baird MD IMG XR PROCEDURES Final Res ult Performing Organization Address [facility] de Phone Number [email or web address] * MSK MR Outside Reference (01/07/2025 2:36 PM CDT) Impressions [facility] - 01/07/2025 2:36 PM CDT These images are for Reference purposes only and have not been reviewed by [facility]iology. There will be no report generated by a [facility] Radiologist. Narrative RAD_PACS_[facility] - [...] Res ult from Last 3 Months Insurance [employer] [place] [employer] [place] Care Teams Maintenance Operator Relationship Specialty Start Date End Date Ketan Vasquez MD [address] [facility] [address] [place] [address] PCP - General Internal Medicine 07/02/24
--- NOTE | 2025-02-21 22:32 | P.PCNPFT_ITS ---
PFT Procedure Performed PFT Procedure Performed Spirometry with Pre/Post Bronchodilator Plethysmography (Lung Vol) Diffusing Cap (DLCO) Flow Vol Loop PFT Interpretation DOS: 02/20/2025 REQUESTING: Ketan Vasquez MD REASON FOR TESTING: Dyspnea PULMONARY FUNCTION TESTS Results are reliable and reproducible. Repeatability of spirometry FEV1 maneuver pre and post bronchodilator is Grade A. GLI 2012 reference equations were used. Spirometry: The pre-bronchodilator FEV1 is 4.29 L, 115%, normal. The pre- bronchodilator FVC is 5.467 L, 120%, normal. The FEV1/FVC ratio is 78%, normal. After bronchodilator, the FEV1 is 4.35 L, 117%, +1%. After bronchodilator, the FVC is 5.44 L, 119%, -1%. The FEV1/FVC ratio is 80%, normal. Lung volumes: The total lung capacity is 7.40 L, 120%, normal. The residual volume is 1.92 L, 119%, normal. The RV/TLC is 26%, normal. FRC is 3.16 L, 105%, normal. Airway resistance is normal. Diffusion: DLCO is 29.8, 95%, normal. The DLCO/VA is 4.41, 87%, normal. Flow volume loop: The flow volume loop shows a normal pattern. IMPRESSION: This study shows normal spirometry without response to bronchodilator, normal lung volumes and diffusion. Lack of response to bronchodilator should not preclude use if clinically indicated. There are no prior studies to compare. Lynette Benton MD
== END 2025-02-20 09:30 | disposition home or self-care (01) ==
PROVIDERS: PCP Internal Medicine; Visit Provider Internal Medicine
DX: R06.09 Other forms of dyspnea (principal)
CPT/HCPCS: 94060; 94726; 94729

== ENCOUNTER 2025-03-18 14:36 | Outpatient (CLI) | payer BC, SELFPAY ==
--- NOTE | 2025-03-18 14:49 | ECHO_ITS ---
Patient Info Name: Arnold Joseph Age: 39 years : 1985 Gender: Male Ht: 65 in Wt: 175 lbs BSA: 1.93 m2 HR: 91 bpm BP: 146 / 93 mmHg Heart Rhythm: Sinus Rhythm Technical Quality: Good Exam Date: 03/18/2025 3:04 PM Patient Status: O Admit Date: 03/18/2025 Exam Type: CA echo doppler color flow Complete two-dimensional, color flow and Doppler transthoracic echocardiogram is performed. Professor Of Apologetics: Shara Matos Attending Provider: Ketan Vasquez MD Summary 1. Complete two-dimensional, color flow and Doppler transthoracic echocardiogram is performed. 2. Left ventricular chamber dimension is normal. 3. Left ventricular systolic function is normal, estimated at 65-70. 4. The left ventricular diastolic function is normal. 5. E/e' 6 is not elevated. 6. Left atrial chamber dimension is mildly enlarged. 7. There is trace mitral valve regurgitation. 8. There is trace tricuspid valve regurgitation. 9. No pulmonary hypertension, estimated pulmonary arterial systolic pressure is 22 mmHg. Left Ventricle E/e' 6 is not elevated. Left ventricular chamber dimension is normal. Left ventricular systolic function is normal, estimated at 65-70. The left ventricular diastolic function is normal. Right Ventricle Right ventricular chamber dimension is normal. Right ventricular systolic function is normal and with normal TAPSE 2.4 cm. Left Atria Left atrial chamber dimension is mildly enlarged. Right Atria Right atrial chamber dimension is normal. Aortic Valve The aortic valve is trileaflet. There is no aortic valve stenosis. There is no aortic valve regurgitation. Pulmonic Valve There is no pulmonic regurgitation. Mitral Valve There is no mitral valve stenosis. There is trace mitral valve regurgitation. Tricuspid Valve There is trace tricuspid valve regurgitation. No pulmonary hypertension, estimated pulmonary arterial systolic pressure is 22 mmHg. Pericardium/Pleural There is no pericardial effusion. Inferior Vena Cava Normal inferior vena cava with >50% collapse upon inspiration consistent with normal right atrial pressure, 5 mmHg. Aorta The aortic root size at the sinus of Valsalva is normal. Left Ventricular Outflow Tract Name Value Normal LVOT 2D LVOT Diameter 2.0 cm LVOT Doppler LVOT Peak Velocity 100 cm/s LVOT Peak Gradient 4 mmHg LVOT Mean Gradient 2 mmHg LVOT VTI 18 cm LVOT VTI/AV VTI Ratio 0.8 LVOT Stroke Volume 55 ml LVOT CO 4.2 l/min LVOT CI 2.2 l/min/m2 Pulmonic Valve Name Value Normal RVOT Doppler RVOT Peak Velocity 73 cm/s RVOT Peak Gradient 2 mmHg PV Doppler PV Peak Velocity 103 cm/s PV Peak Gradient 4 mmHg Mitral Valve Name Value Normal MV Diastolic Function MV E Peak Velocity 69 cm/s MV A Peak Velocity 45 cm/s MV E/A 1.5 MV Decel Time (PW) 162 ms MV Annular TDI MV E/e' (Septal) 7.4 MV E/e' (Lateral) 6.5 MV E/e' (Average) 7.0 Tricuspid Valve Name Value Normal TV Regurgitation Doppler TR Peak Velocity 207 cm/s TR Peak Gradient 17 mmHg Estimated PAP/RSVP RA Pressure 5 mmHg <=5 PA Systolic Pressure 22 mmHg <36 RV Systolic Pressure 22 mmHg <36 TV Annular TDI TV Lateral Elva s' Velocity 13.6 cm/s >=9.5 Aorta Name Value Normal Ascending Aorta Ao Root Diameter (MM) 3.2 cm Ao Root Diam Index (MM) 1.7 cm/m2 Aortic Valve Name Value Normal AV Doppler AV Peak Velocity 115 cm/s AV Peak Gradient 5 mmHg AV Mean Gradient 3 mmHg AV VTI 23 cm AV Area (Cont Eq VTI) 2.4 cm2 >=3.0 AV Area (Cont Eq Shantanu) 2.6 cm2 AV DI (Shantanu) 0.86 AV Regurgitation 2D LVOT Area 3.0 cm2 Ventricles Name Value Normal LV Dimensions 2D/MM IVS Diastolic Thickness (2D) 1.0 cm 0.6-1.0 LVID Diastole (2D) 4.7 cm 4.2-5.8 LVIW Diastolic Thickness (2D) 0.8 cm 0.6-1.0 LVID Systole (2D) 2.6 cm 2.5-4.0 LVOT Diameter 2.0 cm LV Mass (2D Cubed) 137.30 g 88.00-224.00 LV Mass Index (2D Cubed) 71 g/m2 49-115 Relative Wall Thickness (2D) 0.34 <=0.42 LV Fractional Shortening/Ejection Fraction 2D/MM LV Fractional Shortening (2D) 43 % 25-43 LV EF (2D Teichholz) 74 % LV Diastolic Volume (4C MOD) 56 ml LV EF (4C MOD) 75 % LV Diastolic Volume (2C MOD) 58 ml LV EF (2C MOD) 69 % LV Diastolic Volume (BP MOD) 58 ml 62-150 LV Diastolic Volume Index (BP MOD) 30 ml/m2 34-74 LV Systolic Volume (BP MOD) 16 ml 21-61 LV Systolic Volume Index (BP MOD) 8 ml/m2 11-31 LV EF (BP MOD) 73 % 52-72 LV Diastolic Length (4C) 7.9 cm LV Systolic Length (4C) 6.7 cm LV Stroke Volume (4C MOD) 42 ml Atria Name Value Normal LA Dimensions LA Dimension (MM) 3.6 cm 3.0-4.0 LA Volume (4C A-L) 38 ml LA Volume (BP A-L) 40 ml RA Dimensions RA Systolic Major [place] Length (4C) 4.4 cm 2.1-2.7 RA Area (4C) 10.1 cm2 <=18.0 Report Signatures
== END 2025-03-18 14:37 | disposition home or self-care (01) ==
LOC: ANHCARD 14:37
PROVIDERS: PCP Internal Medicine; Visit Provider Internal Medicine
DX: R93.1 Abnormal findings on diagnostic imaging of heart and coronary circulation (principal); R06.09 Other forms of dyspnea
CPT/HCPCS: 93306

== ENCOUNTER 2025-04-11 11:47 | Outpatient (CLI) | payer BC, SELFPAY ==
--- OUTSIDE RECORDS SUMMARY | 2025-04-11 11:50 | XMS_ITS | Clinical Summary ---
Author Organization [facility] [employer] Address [address] [facility] [place] [address] Care Team Providers Care Senior Sourcing Manager Name Role Phone Armando David MD Primary Care Provider [phone] Source Comments [facility] [employer],non-owned Affiliates and Associated Physician Practices is amultiple site organization consisting of ambulatory clinics and hospital sitesin [place], [place], [place] and [place]. This disclosure is being madepursuant to the Care Everywhere program and may not contain all information available regarding this patient. Last updated 18.[facility] [employer] Medications * Be aware that medications may [...] of 3 - 19+ 3-dose series) 2003 HPV VACCINE (1 - 3-dose SCDM series) 2011 COVID-19 VACCINE (2023-2 5 season) 2024 DEPRESSION SCREENING 09/26/2024 INFLUENZA VACCINE (#1) 2025 DTAP/TDAP/TD VACCINES (2 - T d [...] topic Insurance ANTHEM ANTHEM Care Teams Senior Sourcing Manager Relationship Specialty Start Date End Date Armando David MD [address] [facility] [address] [place] [address] PCP - General 05/22/19
--- OUTSIDE RECORDS SUMMARY | 2025-04-11 11:50 | XMS_ITS | Referral Summary ---
Author Organization [facility]opedic [facility] Address [address] [place] [address] Care Team Providers Care Breaker Up Name Role Phone Ketan Vasquez MD Primary Care Provider [phone] Encounters Date Type Department Care Team Description 03/18/2025 8:20 AM CDT Procedure visit [facility] Neurological Testing [address] [facility] 6th [place] [address] [place] [address] Bilateral foot pain; Plantar fascial fibromatosis of both feet 02/11/2025 11:15 AM CDT Office Visit [facility] Orthopaedic Surgery [address] 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 Gender Identity Not on file Sexual Orientation Not on file Plan of Treatment Not on file Procedures Procedure Name Priority Date/Time Associated Diagnosis Comments EMG/NCV Routine 03/18/2025 8:22 AM CDT Bilateral foot pain Plantar fascial fibromatosis of both feet from Last 3 Months Results * EMG/NCV (03/18/2025 8:22 AM CDT) Anatomical Region Laterality Modality Other Narrative 03/18/2025 8:22 AM CDT Chucho Lucio MD 03/18/2025 9:15 AM EMG/NCV - Date/Time: 03/18/2025 8:22 AM Performed by: Chucho Lucio MD Authorized by: Aleks [place] Jr., MD Aleks [place]aird MD NEUROLOGY ORDERABLES Final Result from Last 3 Months Insurance [employer] [place] [employer] [place] Care Teams Breaker Up Relationship Specialty Start Date End Date Ketan Vasquez MD [address] [facility] [address] [facility] [address] [place] [address] PCP - General Internal Medicine 07/02/24
--- OUTSIDE RECORDS SUMMARY | 2025-04-11 11:50 | XMS_ITS | Clinical Summary ---
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 Gender Identity Not on file Sexual Orientation Not on file Last Filed Vital Signs Vital Sign Reading Time Taken Comments Blood Pressure 100/80 10/01/2010 1:37 PM PICKER PACKER Pulse - - Temperature 36.9 C (98.5 F) 10/01/2010 1:37 PM PICKER PACKER Respiratory Rate - - Oxygen Saturation - - Inhaled Oxygen Concentration - - Weight 73.7 kg (162 lb 6.4 oz) 10/01/2010 1:37 P M PICKER PACKER Height - - Body Mass Index - - Plan of Treatment Health Maintenance Due Date Last Done Comments HPV VACCINES (1 - Male 3-dose series) 1999 DTAP/TDAP/TD VACCINES (1 - Tdap) 2003 HEPATITIS B VACCINES (1 of 3 - 19+ 3-dose series) 10/27 INFLUENZA VACCINE (#1) 2025 Insurance Care Teams Extrusion Technician Relationship Specialty Start Date End Date Lauri Mckinley MD PCP - General Internal Medicine 10/01/10
--- OUTSIDE RECORDS SUMMARY | 2025-04-11 11:50 | XMS_ITS | Encounter Summary ---
Author Organization [facility] Address [address] [place] [address] Care Team Providers Care Police Records Clerk Name Role Phone Lauri Mckinley MD Primary Care Provider [phone] Encounter Details Date Type Department Care Team (Late st Contact Info) Description 10/05/2007 Outpatient Historical [facility] Primary Care - [address] [place] [id number] Lauri Mckinley MD [address] [facility] [address] [place], [place] [id number] Social History Tobacco Use Types Packs/Day Years Used Date Smoking Tobacco: Never Assessed Sex and Gender Information Value Date Recorded Sex Assigned at Not on file 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 Gender Identity Not on file Sexual Orientation Not on file documented as of this encounter Last Filed Vital Signs Vital Sign Reading Time Taken Comments Blood Pressure 116/82 10/05/2007 2:15 PM GEAR TOOTH GRINDING MACHINE OPERATOR Pulse - - Temperature 36.7 C (98 F) 10/05/2007 2:15 PM GEAR TOOTH GRINDING MACHINE OPERATOR Respiratory Rate - - Oxygen Saturation - - Inhaled Oxygen Concentration - - Weight 62.6 kg (138 lb) 10/05/2007 2:15 PM GEAR TOOTH GRINDING MACHINE OPERATOR Height - - Body Mass Index - - documented in this encounter Plan of Treatment Not on file documented as of this encounter Visit Diagnoses Not on filedocumented in this encounter Care Teams Police Records Clerk Relationship Specialty Start Date End Date Lauri Mckinley MD PCP - General Internal Medicine 10/01/10 documented as of this encounter
--- OUTSIDE RECORDS SUMMARY | 2025-04-11 11:50 | XMS_ITS | Clinical Summary ---
Author Organization [facility] Address [address] [place] [address] Care Team Providers Care Staff Pharmacist Hospital Name Role Phone Ketan Vasquez MD Primary Care Provider [phone] Allergies No known active allergies Medications pantoprazole DR (PROTONIX) 40 mg EC tablet Take 1 tablet (40 mg total) by mouth daily Active meloxicam (MOBIC) 15 mg tabletIndication s:Bilateral foot pain Take 1 tablet (15 mg total) by mouth daily 30 tablet 01/07/2025 Active Active Problems No known active problems Encounters Date Type Department Care Team Description 03/18/2025 8:20 AM CDT Procedure visit [facility] [address] [facility] [address] [place] [address] Bilateral foot pain; Plantar fascial fibromatosis of both feet 02/11/2025 11:15 AM CDT Office Visit [facility] [address] [facility] 6th [place] [address] [place] [address] Aleks Baird MD 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); Bilateral foot pain from Last 3 Months Medical History Medical History Date Comments Acid reflux Social History Tobacco Use Types Packs/Day Years Used Date Smoking Tobacco: Never Tobacco Cessation:Counseling Given: Not Answered Sex and Gender Information Value Date Recorded Sex Assigned at Not on file 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 Gender Identity Not on file Sexual Orientation Not on file Obstetrics History Plan of Treatment Health Maintenance Due Date Last Done Comments Depression Screening 1984 Hepatitis C Screening 1984 Varicella Vaccines (1 of 2 - 13+ 2-dose series) 1997 Hepatitis B Screening 2002 Regular Well Visit/Exam 18-64 2002 Influenza Vaccine (#1) 2025 , 07/15/2023, 07/31/2022 DTaP/Tdap/Td Vaccine (2 - Td or Tdap) 06/18/2029 06/18/2019 Covid-19 Vaccine Completed 09/10/2024, , 08/18/2021, Additional history exists HPV Vaccines Aged Out No longer eligi [...] by: Chucho Lucio MD Authorized by: Aleks aBird Jr., MD us Aleks Baird MD NEUROLOGY ORDERABLES Final Result from Last 3 Months Insurance [facility] Care Teams Staff Pharmacist Hospital Relationship Specialty Start Date End Date Ketan Vasquez MD [address] [facility] [address] [place], [place] [id number] PCP - General Internal Medicine 07/02/24
[2025-04-11 12:52] LABS: Cholesterol 143 mg/dL (0-200); HDL Direct 39 mg/dL; Triglycerides 111 mg/dL (<150)
== END 2025-04-11 11:48 | disposition home or self-care (01) ==
LOC: ANHLAB 11:48
PROVIDERS: PCP Internal Medicine; Visit Provider Internal Medicine
DX: E78.5 Hyperlipidemia, unspecified (principal)
CPT/HCPCS: 36415; 80061

== ENCOUNTER 2025-07-19 02:13 | Day surgery (SDC) | payer BC, SELFPAY ==
--- NOTE | 2025-07-10 10:02 | SUR.PREOP ---
[facility] has started construction of its new state of the art ER which will open Spring 2026. With this, we anticipate parking may be a challenge for some our surgical patients and families. Parking spaces are limited but are available for all Surgical, obstetrics, and ER patients sharing this lot. If you arrive and find you are having a hard time finding a parking space, please note that we understand the challenges, please drive around the hospital and park near Hospital Entrance 1. When you enter this entrance, you can ask a volunteer to direct or take you back to the surgical waiting area to check in. We appreciate everyone?s understanding of these expected challenges while we build for your future. Report to the Outpatient Waiting Room, entrance under the green pavilion located off [address], at time _0900_ on date _07/19/25_. Planned Procedure Time: _1100_.? Time changes happen often and if your time is changed the preop area will call you the afternoon before. - You and your visitor will be asked to self-screen and do not enter if you have any COVID symptoms. Please call surgeon if you need to reschedule. - A mask is optional within the hospital at this time. Patients may have clear liquids (water, carbonated beverages, clear teas, apple juice) until 3 hours prior (0800) to surgery with a maximum of 20 ounces. - No food from midnight until time of surgery and no smoking, or chewing tobacco (or any form of nicotine). No chewing gum, candy or mints. - Infants may have breast milk until 4 hours before surgery, infant formula 6 hours prior to surgery. - Children will be allowed to drink immediately following surgery.? If applicable, please bring a bottle or sippy cup to assist with drinking. Juice, water, soda, and popsicles are readily available.? For infants on formula, please bring formula the day of surgery.? Pacifiers are allowed. Take only the following medications with a SIP of water on the morning of surgery: _NA_ DO NOT STOP ANY OF YOUR OTHER PRESCRIPTION MEDICATIONS PRIOR TO SURGERY EXCEPT THE FOLLOWING Hold all vitamins and supplements for 3 days per anesthesiologist. Medications to discontinue per physician _NAPROXEN_ Date to take last dose_PER DR PALMA_ Please no make-up, nail kinyarwanda, hairspray, perfume, deodorant, or body powder the day of surgery.? No jewelry (including any body piercings) or valuables the day of surgery, leave them at home.? Please take a shower or bath the night before, or the morning of, surgery with an antibacterial soap.? Wear comfortable, loose fitting clothing.? Children are encouraged to wear pajamas. - Jewelry must be removed prior to entering the operating room.? Rings and piercings that are not removed may be cut off. - The hospital will not accept responsibility for valuables.? - Please leave all valuables, including medications, at home the day of surgery. If you are going home after surgery, a licensed bulk truck driver must drive you home.? - NO public transportation without another adult if you receive anesthesia. - We recommend that an adult stay with you for 24 hours following discharge. - We also recommend that you do not drive, make important decision, drink alcoholic beverages, or take any drugs that were not prescribed by your health care provider for at least 24 hours after your discharge time. For Pediatric surgeries, we recommend two adults accompany the child home. Follow any additional instructions given to you from your surgeon. Telephone instructions given to _MARCELLO_and asked if any additional questions and then verbalized understanding. Patient advised to call surgeon office or pre surgery nurse liaison [phone] if any additional questions.
[2025-07-10 10:09] VITALS: BMI 26.6
[2025-07-19] VITALS (10 sets, daily range): BP systolic 89–129; BP diastolic 46–82; PULSE 64–87; RESP 12–18; TEMP 36.7–36.9; O2SAT 97–100
--- OUTSIDE RECORDS SUMMARY | 2025-07-19 02:16 | XMS_ITS | Clinical Summary ---
Author Organization [facility] Address [address] [place] [address] Care Team Providers Care Staff Development Educator Name Role Phone Lauri Mckinley MD Primary Care Provider [phone] Allergies Active Allergy Reactions Criticality Noted Date [...] on file Legal Sex Male 4:33 AM POSTPARTUM RN Gender Identity Not on file Sexual Orientation Not on file Last Filed Vital Signs Vital Sign Reading Time Taken Comments Blood Pressure 100/80 10/01/2010 1:37 PM POSTPARTUM RN Pulse - - Temperature 36.9 C (98.5 F) 10/01/2010 1:37 PM POSTPARTUM RN Respiratory Rate - - Oxygen Saturation - - Inhaled Oxygen Concentration - - Weight 73.7 kg (162 lb 6.4 oz) 10/01/2010 1:37 P M POSTPARTUM RN Height - - Body Mass Index - - Plan of Treatment Health Maintenance Due Date Last Done Comments DTAP/TDAP/TD VACCINES (1 - Tdap) 2003 HEPATITIS B VACCINES (1 of 3 - 19+ 3-dose series) 10/27 HPV VACCINES (1 - 3-dose SCDM series) 2011 INFLUENZA VACCINE (#1) 2025 Insurance [employer] PPO [id number] Care Teams Staff Development Educator Relationship Specialty Start Date End Date Lauri Mckinley MD PCP - General Internal Medicine 10/01/10
--- OUTSIDE RECORDS SUMMARY | 2025-07-19 02:16 | XMS_ITS | Clinical Summary ---
Author Organization [facility] Address [address] [place] [address] Care Team Providers Care Wood Scaler Name Role Phone Ketan Vasquez MD Primary Care Provider [phone] Allergies No known active allergies Medications pantoprazole DR (PROTONIX) 40 mg EC tablet Take 1 tablet (40 mg total) by mouth daily Active meloxicam (MOBIC) 15 mg tabletIndication s:Bilateral foot pain Take 1 tablet (15 mg total) by mouth daily 30 tablet 01/07/2025 Active Active Problems No known active problems Medical History Medical History Date Comments Acid reflux Social History Tobacco Use Types Packs/Day Years Used Date Smoking Tobacco: Never Tobacco Cessation:Counseling Given: Not Answered Sex and Gender Information Value Date Recorded Sex Assigned at Not on file 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 Gender Identity Not on file Sexual Orientation Not on file Obstetrics History Plan of Treatment Health Maintenance Due Date Last Done Comments Depression Screening 1984 Hepatitis C Screening 1984 Varicella Vaccines (1 of 2 - 13+ 2-dose series) 1997 Hepatitis B Screening 2002 Regular Well Visit/Exam 18-64 2002 HPV Vaccines (1 - 3-dose SCDM series) 2011 Influenza Vaccine (#1) 2025 , 07/15/2023, 07/31/2022 DTaP/Tdap/Td Vaccine (2 - Td or Tdap) 06/18/2029 06/18/2019 Covid-19 Vaccine Completed 09/10/2024, , 08/18/2021, Additional history exists Pneumococcal vaccine <65 Aged Out No longer eligible based on patient's age to complete this topic [place] [employer] [place] [employer] [place] Care Teams Wood Scaler Relationship Specialty Start Date End Date Ketan Vasquez MD PCP - General Internal Medicine 07/02/24
--- OUTSIDE RECORDS SUMMARY | 2025-07-19 02:16 | XMS_ITS | Encounter Summary ---
Author Organization [facility] Address 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 Gender Identity Not on file Sexual Orientation Not on file documented as of this encounter Last Filed Vital Signs Vital Sign Reading Time Taken Comments Blood Pressure 116/82 10/05/2007 2:15 PM ANNUAL CAMPAIGN MANAGER Pulse - - Temperature 36.7 C (98 F) 10/05/2007 2:15 PM ANNUAL CAMPAIGN MANAGER Respiratory Rate - - Oxygen Saturation - - Inhaled Oxygen Concentration - - Weight 62.6 kg (138 lb) 10/05/2007 2:15 PM ANNUAL CAMPAIGN MANAGER Height - - Body Mass Index - - documented in this encounter Plan of Treatment Not on file documented as of this encounter Visit Diagnoses Not on filedocumented in this encounter Care Teams Payroll Tax Analyst Relationship Specialty Start Date End Date Lauri Mckinley MD PCP - General Internal Medicine 10/01/10 documented as of this encounter
--- NOTE | 2025-07-19 07:17 | W.PM.PROC2 ---
Procedure Note - Detailed Date of Procedure 07/19/25 Pre-op Diagnosis Plantar fasciitis right foot Post-op Diagnosis Same Procedure Performed Partial plantar fasciectomy right foot Surgeon Aaron Encarnacion Jr., DPM Anesthesia MAC and Local Indications Painful right inferior heel recalcitrant to conservative management. Description of Procedure Under mild sedation, the patient was brought in to the operating room, placed on the operating table in the supine position. A pneumatic ankle tourniquet was placed about the patient's ankle. Following general anesthesia, local anesthesia was obtained about the affected lower extremity utilizing 20 mL of a one to mix of 2% Lidocaine plain and 0.5% Marcaine plain to the tibial nerve. The foot was then scrubbed, prepped, and draped in the usual aseptic manner. An Esmarch bandage was then used to exsanguinate the patient's foot and the pneumatic ankle tourniquet was then inflated. Next, an incision was made starting distal to the medial tubercle of the calcaneus extending distally 3cm. All bleeders were cauterized as necessary. Next the dissection was continued down to the plantar fascia it was exposed medially and laterally with Army Sayner retractors. Two thirds of the medial plantar fascia was transected and a 4mm portion was also cut and discarded. The wound site was flushed with sterile saline. The deep subcutaneous tissue was reapproximated with 3.0 Vicryl and the skin was reapproximated with 2.0 Prolene and 3.0 Prolene in Vertical mattress and Simple interrupted suture technique. Upon completion of the procedure, the plantar incision was dressed with adaptic, 4x4 gauze, kerlix and coban. The pneumatic ankle tourniquet was then deflated and a prompt hyperemic response was noted to all digits of the affected foot. A CAM Walker boot was then applied. The patient did very well with the procedure and the anesthesia. The patient was transferred to the recovery room with vital signs stable and vascular status intact to all toes of the affected foot. Following a period of postoperative monitoring, the patient will be discharged home on the following written and oral postoperative instructions: 1. The patient should keep the dressing clean, dry, and intact. Use a cast protector bag with showers. 2. The patient will be non weight bearing with a knee scooter for one week followed by two weeks of protected weight bearing with CAM walker boot. 3. Patient should ice and elevate the affected foot when at rest. 4. The patient is to contact Dr. Encanracion for all postop care and if any problems arise. 5. Prescriptions were written for Percocet 5/325 dispensed 40 to be taken 1 p.o. q.4-6 hours as needed for severe pain. . Estimated Blood Loss 1 Drains No Packing No Pathology None sent Complications No immediate complications Condition Stable Disposition Same day
--- NOTE | 2025-07-19 07:17 | WPDHPUPDATE1 ---
History and Physical Update Update Date/Time: 07/19/25 07:17 History and Physical has been reviewed, including an updated exam of the patient. There are NO changes in the patient's condition. Risks, benefits, and alternatives have been discussed and questions answered. Patient agrees to proceed with procedure.
[2025-07-19] MEDS: LACTATED RINGERS 1,000 ML 30 ML IV CONT ×2 (09:55→12:36)
--- NOTE | 2025-07-19 09:56 | WPDANESEPPF ---
Anes - Initial Pre Proc Eval Procedure: Operation Date: 07/19/25 11:00 Proposed Procedures p Partial Plantar Fasciectomy Right Foot - Aaron Encarnacion Jr., DPM Date/Time: 07/19/25 09:56 Surgeon: Aaron Encarnacion Jr., DPM Pre Op Diagnosis: plantar fasciitis right foot Patient Data Age: 39 Gender: M Height: 1.7 m Weight: 77.27 kg Allergies Allergy/AdvReac Type Severity Reaction Status Date / Time suncscreen AdvReac Mild Rash Uncoded 07/10/25 10:17 Home Medications ?Medication ?Instructions ?Recorded ?Confirmed ?Type naproxen 250 mg tablet 250 mg PO BID PRN pain 07/25/23 07/10/25 History cholecalciferol (vitamin D3) 50 50 mcg PO DAILY 07/23/24 07/10/25 History mcg (2,000 unit) capsule pantoprazole 40 mg tablet,delayed 40 mg PO DAILY #90 tabs 10/29/24 07/10/25 Rx release pravastatin 40 mg tablet 40 mg PO DAILY #90 tabs 02/13/25 07/10/25 Rx oxycodone-acetaminophen 5 mg-325 1 tablet PO Q4H PRN pain #20 tabs 07/18/25 Rx mg tablet (Percocet) Patient hx anesthesia problems: none Family hx anesthesia problems: none Results Review: All pre-operative results and documents have been reviewed as part of the pre-operative evaluation. [facility] Past Medical History Medical History Encounter for routine adult health examination without abnormal findings Chronic back pain Vitamin D deficiency FHx: heart disease Hyperlipidemia BMI 28.0-28.9,adult Plantar fasciitis, bilateral On intermediate accountant drug therapy Thyroid nodule GERD (gastroesophageal reflux disease) BMI 26.0-26.9,adult Encounter for preventive health examination BMI 25.0-25.9,adult Pain in right foot Pain in right ankle Screening for disorder of blood and blood-forming organs Family history of elevated blood lipids Screening for diabetes mellitus Family history of diabetes mellitus Annual physical exam Encounter to establish care with new doctor Family History Family History Father Hypertension Diabetes mellitus Mixed hyperlipidemia Obstructive sleep apnea Grandparent Colon cancer Social History Social History Smoking status: Never smoker Second hand tobacco smoke exposure: No Alcohol intake: never Substance use: never Substance use type: does not use Lack of Transportation: No Lack of Food: Never True Current Housing: I Have Housing Concerned About Future Housing: No Difficulty Paying Gas/Electric Bills: No Difficulty Paying for Meds: No Currently Unemployed: No Education: Decline to Answer Difficulty w/ Childcare or Family Care: No Living arrangements: with family Spiritual care concerns: No Anes - Eval Final PreProcedure Day of Procedure 07/19/25 09:56 Patient weight: normal Lungs: normal air movement Airway: Mallampati scale class II Neurological: alert and oriented Last oral intake: >/= 8 hours ASA classification: II Emergent: no Anesthetic plan: proceed Anesthesia type and monitoring: general LMA and standard monitoring Results Review: All pre-operative results and documents have been reviewed as part of the pre-operative evaluation. Hyperlipidemia, active with landscaping, no cp or sob. Informed Consent: The patient's anesthetic plan and its attendant risks and benefits were discussed with the patient/family/POA. Questions were solicited and answers provided to the satisfaction of the patient/family/POA.
[2025-07-19] MEDS: ceFAZolin 2 GM in SODIUM CHLORIDE 0.9% IV 50 ML 100 ML IVPB (11:56)
[2025-07-19] MEDS: BUPivacaine HCL 0.5% 10 ML AMP INFILTRATE (11:56)
[2025-07-19] MEDS: LIDOCAINE 2% LOCAL INJ 20 ML VIAL 10 ML INFILTRATE (12:25)
== END 2025-07-19 14:46 | disposition home or self-care (01) ==
PROVIDERS: PCP Internal Medicine; Visit Provider Podiatrist Foot & Ankle Surgery
PROC: (CPT 28119; principal; 2025-07-19 11:00)
DX: M72.2 Plantar fascial fibromatosis (principal); E78.5 Hyperlipidemia, unspecified; K21.9 Gastro-esophageal reflux disease without esophagitis; E55.9 Vitamin D deficiency, unspecified; G89.29 Other chronic pain; M54.9 Dorsalgia, unspecified; Z79.1 Long term (current) use of non-steroidal anti-inflammatories (NSAID); Z79.891 Long term (current) use of opiate analgesic; Z79.899 Other long term (current) drug therapy; Z80.0 Family history of malignant neoplasm of digestive organs; Z82.49 Family history of ischemic heart disease and other diseases of the circulatory system
CPT/HCPCS: 28060; J0690; J2003; J2250; J2405; J2704; J3010; J7120